=== PATIENT | male | born 1970 | race Caucasian/White ===

== ENCOUNTER 2020-03-04 08:27 | Emergency (ER) | payer OTHER, SELFPAY ==
--- NOTE | ~2020-03-04 | CT_ITS ---
EXAMINATION: CT abdomen pelvis w con DATE: 03/04/2020 09:22 INDICATION: Right lower quadrant abdominal pain. TECHNIQUE: Computed tomography (CT) of the abdomen and pelvis was performed with 100 mL Omnipaque 350 intravenous contrast. Automated exposure control and iterative reconstruction technique were employe d. The dose-length product was 1635.22 mGy-cm. COMPARISON: None. FINDINGS: Partially visualized is a 7 mm nodule in right lung lower lobe. Partially visualized are 8 mm and 4 mm nodules at minor fissure. No pleural effusion. The heart size is normal. There are garrison ry artery calcifications. No pericardial effusion. There is an 8 mm cyst in the liver. The gallbladde r, spleen, pancreas, and adrenal glands are normal. There is mild right hydronephrosis. There is a 4 mm stone in proximal right ureter. There is a 3 mm stone in left kidney. There are cysts in left kidn ey measuring up to 12 mm. The prostate is mildly enlarged. There are changes of right inguinal hernia repair. There is diverticulosis of the colon without evidence of diverticulitis. There are no dilate d loops of bowel. The appendix is normal. There are no pathologically enlarged lymph nodes. There is no free intraperitoneal fluid. There are chronic bilateral L5 pars defects. There is 8 mm anterolisth esis of L5 on S1. There is moderate lower lumbar spondylosis. IMPRESSION: 1. 4 mm stone in proximal right ureter with mild right hydronephrosis. 2. 3 mm nonobstructing left kidney stone. 3. Pulmonary nodules, probably benign. Noncontrast low-dose chest CT is recommended in 6 months. Reviewed, dictated and finalized at location B. IMPRESSION: 1. 4 mm stone in proximal right ureter with mild right hydronephrosis. 2. 3 mm nonobstructing left kidney stone. 3. Pulmonary nodules, probably benign. Noncontrast low-dose chest CT is recomme nded in 6 months.
[2020-03-04 08:35] VITALS: BP 204/103; PULSE 104; RESP 18; TEMP 36.1; O2SAT 96
[2020-03-04 08:55] LABS: Basophils Absolute Auto 0.1 K/mm3 (0.0-0.1); Basophils Percent Auto 0.7 % (0.2-1.2); Eosinophils Absolute Auto 0.2 K/mm3 (0-0.3); Hematocrit 50.5 % (42.0-52.0); Hemoglobin 17.6 g/dL (14.0-18.0); Immature Granulocyte Absolute 0.02 K/mm3 (0.00-0.031); Immature Granulocyte Percent A 0.2 % (0-0.5); Lymphocytes Absolute Auto 2.11 K/mm3 (0.9-3.2); Lymphocytes Percent Auto 23.9 % (18.3-44.2); Mean Corpuscular HGB Conc 34.9 g/dl (32-36); Mean Corpuscular Hemoglobin 29.9 pg (26-34); Mean Corpuscular Volume 85.9 fl (80-100); Mean Platelet Volume 9.3 fl (7.4-10.4); Monocytes Absolute Auto 0.7 K/mm3 (0.1-0.6); Neutrophils Absolute Auto 5.8 K/mm3 (1.3-6.7); Neutrophils Percent Auto 65.2 % (45.5-73.1); Platelet Count Result 275 k/mm3 (150-375); Red Blood Count 5.88 M/mm3 (4.6-6.20); Red Cell Distribution Width 14.1 % (11.5-14.5); White Blood Count 8.8 K/mm3 (4.5-10.0)
[2020-03-04] MEDS: SODIUM CHLORIDE 0.9% IV 1,000 ML 999 ML IV CONT (08:57)
[2020-03-04 08:58] LABS: Add Urine Microscopic? YES; Appearance Urine Clear (Clear); Bilirubin Urine Negative (Negative); Blood Urine 2+ (Negative); Color Urine Yellow (Yellow); Glucose Urine UA Negative (Negative); Ketones Urine Negative (Negative); Leukocyte Esterase Ur Negative LEU/UL (Negative); Mucus Urine Rare /lpf; Nitrate Urine Negative (Negative); Protein Urine Negative (Negative); Specific Grav Ur 1.018 (1.001-1.035); Urobilinogen Urine Negative mg/dL (<2.0); WBC Urine 0-3 /hpf
[2020-03-04 09:05] LABS: Anion Gap 6 mmol/L (8-16); Blood Urea Nitrogen 17 mg/dL (9-20); Calcium 8.9 mg/dL (8.4-10.2); Carbon Dioxide 28 mmol/L (22-30); Chloride 105 mmol/L (98-107); Estimated CRCL calculation 125 ml/min; Estimated Glomerular Filt Rate > 60; Glucose 159 mg/dL (75-110); Potassium 4.1 mmol/L (3.4-5.0); Sodium 139 mmol/L (137-145)
--- NOTE | 2020-03-04 09:11 | ED.ABDPAIN ---
HPI - Abdominal Pain General Chief Complaint: Abdominal Pain Stated Complaint: rlq abd pain Time Seen by Provider: 03/04/20 08:46 Source: patient and family Mode of arrival: ambulatory Limitations: no limitations History of Present Illness HPI narrative: 50 years old white female, morbidly obese presents with right upper quadrant pain intermittently started last night. Patient denies any nausea, vomiting, fever, chills or, similar symptoms. Patient report the pain probably get better or worse with certain positions. No history of abdominal surgery. Patient does not take medications at home. Patient smokes, does not drink or use drugs. MD elicited complaint: abdominal pain Related Data Home Medications Medication Instructions Recorded Confirmed No Home Medications 03/04/20 03/04/20 Allergies Allergy/AdvReac Type Severity Reaction Status Date / Time No Known Allergies Allergy Verified 03/04/20 08:41 Review of Systems Review of Systems: Narrative: CONSTITUTIONAL: Denies fever, chills, or sweats. EYES: Denies visual changes, redness, or discharge. ENT: Denies rhinorrhea, congestion, sore throat, or otalgia. CARDIOVASCULAR: Denies chest pain, palpitations, or edema. RESPIRATORY: Denies cough or dyspnea. GASTROINTESTINAL: Right upper quadrant pain GENITOURINARY: Denies dysuria or hematuria. SKIN: Denies rash or itching. MUSCULOSKELETAL: Denies back pain, joint pain, or myalgia. NEUROLOGIC: Denies headache, numbness, or weakness. PSYCHIATRIC: Denies anxiety or depression. PMFSH Social History Social History Gender identity (if verbalized by the patient): Male Exam Narrative: Exam Narrative: General appearance: Well-developed, well-nourished Skin: Normal color Head: Normocephalic, nontraumatic Eyes: Clear conjunctiva ENT: Oropharynx normal, ears normal, nose normal Neck: Supple, nontender Chest and respiratory: Airway patent, no respiratory distress, no accessory muscle use Heart: Regular rate/rhythm Abdomen: Soft, slight upper quadrant tenderness no guarding or rebound, no organomegaly, quiet bowel sounds Vascular: Normal peripheral pulses, normal capillary refill. Musculoskeletal: Normal range of motion, nontender back Neurologic: Alert and oriented ?3, IC DESIGN ENGINEER is normal as tested, no gross motor deficit Course Course Emergency Course: Stable Reevaluation(s) Reevaluation #1: Patient feeling much better, willing to go home, declined to stay in the hospital for pain management. Date: 03/04/20 Time: 10:18 Vital Signs Vital signs: Vital Signs Temperature 36.1 C L 03/04/20 08:35 Pulse Rate 104 H 03/04/20 08:35 Respiratory Rate 18 03/04/20 08:35 Blood Pressure 204/103 H 03/04/20 08:35 Pulse Oximetry 96 03/04/20 08:35 Temperature 36.1 C L 03/04/20 08:35 Pulse Rate 104 H 03/04/20 08:35 Respiratory Rate 18 03/04/20 08:35 Blood Pressure 204/103 H 03/04/20 08:35 Pulse Oximetry 96 03/04/20 08:35 MDM - Abdominal Pain MDM Narrative Medical decision making narrative: Right upper quadrant pain Differential diagnosis as below Labs, CT abdomen and pelvis with IV contrast, IV fluid ordered. Further plan to follow. Patient declined to take any pain medication at this time. Lab Data Result diagrams: 03/04/20 08:47 03/04/20 08:47 Labs: Lab Results 03/04/20 03/04/20 03/04/20 Range/Units 08:47 08:47 08:47 WBC 8.8 (4.5-10.0) K/mm3 RBC 5.88 (4.6-6.20) M/mm3 Hgb 17.6 (14.0-18.0) g/dL Hct 50.5 (42.0-52.0) % MCV 85.9 (80-100) fl MCH 29.9 (26-34) pg MCHC 34.9 (32-36) g/dl RDW 14.1 (11.5-14
[2020-03-04] MEDS: ONDANSETRON INJ 4 MG/2 ML VIAL (09:30)
--- NOTE | 2020-03-04 09:30 | PC.NURSE ---
Per [facility] EDP Dr Mayi valenzuela to give pt Zofran 4MG for nausea and 1MG Dilaudid for pain rated 9/10 currently.
[2020-03-04] MEDS: TAMSULOSIN HCL 0.4 MG CAPSULE PO (10:32)
[2020-03-04] MEDS: KETOROLAC 30 MG/ML VIAL (*BKC) IV PUSH (10:34)
[2020-03-04 10:39] VITALS: BP 180/114; PULSE 67; RESP 18; O2SAT 95
== END 2020-03-04 10:44 | disposition home or self-care (01) ==
PROVIDERS: Emergency Provider Emergency Medicine; PCP Family Medicine Adolescent Medicine
DX: N20.0 Calculus of kidney (principal); R91.1 Solitary pulmonary nodule
CPT/HCPCS: 36415; 74177; 80048; 81001; 85025; 96361; 96374; 96375; 99284; A9270; J1170; J1885; J2405; J7030; Q9967

== ENCOUNTER → 2022-08-18 09:33 | Outpatient (CLI) | payer OTHER, SELFPAY ==
--- NOTE | ~2022-08-18 | US_ITS ---
Abdominal Sonogram: Real-time sonographic imaging of the abdomen was performed. Clinical History: Epigastric pain Findings: The liver appears normal with no evidence of mass lesion or bile duct dilatation. Main por cyndi vein demonstrates normal direction of flow. The spleen is normal in size without evidence of foca l lesion. The gallbladder is well distended, and appears normal with no evidence of gallstone or wal l thickening. The common bile duct measures 4 mm. The pancreas, aorta, and IVC are largely obscured by bowel gas shadowing. The right kidney measures 12.8 cm in length and the left kidney measures 12. 6 cm. There is no hydronephrosis or renal calculus. Impression: No significant abnormality seen. Somewhat suboptimal exam due to patient body habitus and bowel gas s hadowing. Relatively poor resolution of the retroperitoneal structures and kidneys. Reviewed, dictated and finalized at [facility]. TY AND SECURITY MANAGER Impression: No significant abnormality seen. Somewhat suboptimal exam due to patient body h abitus and bowel gas shadowing. Relatively poor resolution of the retroperitone al structures and kidneys.
== END ==
PROVIDERS: PCP Family Medicine Adolescent Medicine; Visit Provider Physician Assistant
DX: R10.13 Epigastric pain (principal)
CPT/HCPCS: 76700

== ENCOUNTER 2022-08-24 09:31 | Outpatient (CLI) | payer OTHER, SELFPAY ==
--- NOTE | ~2022-08-24 | XR_ITS ---
XR chest 2V DATE: 08/24/2022 09:57 INDICATION: Shortness of breath. Abdominal swelling. TECHNIQUE: PA and lateral views COMPARISON: None FINDINGS: There is cardiomegaly. Minimal pleural effusions are suggested. Mild prominence of the kacey r and greater fissures may indicate subpleural edema. No pulmonary consolidation or pneumothorax. IMPRESSION: Cardiomegaly and mild congestive change, probable minimal pleural effusions Reviewed, dictated and finalized at location A. TION SURVIVAL TECHNICIAN IMPRESSION: Cardiomegaly and mild congestive change, probable minimal pleural e ffusions
--- NOTE | ~2022-08-24 | XR_ITS ---
EXAMINATION: XR abdomen/kub 1V INDICATION: Abdominal swelling TECHNIQUE: Supine views of the abdomen were obtained on 2 radiographs. COMPARISON: None FINDINGS: The bowel gas pattern is unremarkable. No free intraperitoneal gas is identified. The visua lized lung bases are clear. There are changes of hernia repair in the right lower quadrant. IMPRESSION: 1. No radiographic correlate for the patient's symptoms. Reviewed, dictated and finalized at location L. NCIAL SERVICES EDUCATION CONSULTANT
[2022-08-24 10:02] LABS: Basophils Absolute Auto 0.1 K/mm3 (0.0-0.1); Basophils Percent Auto 0.8 % (0.2-1.2); Eosinophils Absolute Auto 0.1 K/mm3 (0-0.3); Hematocrit 48.9 % (42.0-52.0); Hemoglobin 16.2 g/dL (14.0-18.0); Immature Granulocyte Absolute 0.01 K/mm3 (0.00-0.031); Immature Granulocyte Percent A 0.1 % (0-0.5); Lymphocytes Absolute Auto 1.45 K/mm3 (0.9-3.2); Lymphocytes Percent Auto 18.9 % (18.3-44.2); Mean Corpuscular HGB Conc 33.1 g/dl (32-36); Mean Corpuscular Hemoglobin 28.6 pg (26-34); Mean Corpuscular Volume 86.2 fl (80-100); Monocytes Absolute Auto 1.1 K/mm3 (0.1-0.6); Monocytes Percent Auto 14.5 % (2.6-8.5); Neutrophils Percent Auto 64.7 % (45.5-73.1); Platelet Count Result 203 k/mm3 (150-375); Red Blood Count 5.67 M/mm3 (4.6-6.20); Red Cell Distribution Width 15.2 % (11.5-14.5); White Blood Count 7.7 K/mm3 (4.5-10.0)
[2022-08-24 10:14] LABS: Alanine Aminotransferase 33 U/L (6-50); Alkaline Phosphatase 49 U/L (38-126); Aspartate Amino Transferase 34 U/L (17-59); Bilirubin,Total 2.7 mg/dL (0.2-1.3); CRP 0.9 mg/dL (<1.0)
[2022-08-24 10:21] LABS: NT Pro B Type Natriuretic Pept 4000 pg/mL (19.9-100)
[2022-08-24 10:48] LABS: Erythrocyte Sedimentation Rate 1 mm/hr (0-20)
== END 2022-08-24 09:32 | disposition home or self-care (01) ==
LOC: ANHLAB 09:33
PROVIDERS: PCP Family Medicine Adolescent Medicine; Visit Provider Nurse Practitioner
DX: E66.01 Morbid (severe) obesity due to excess calories (principal); E80.6 Other disorders of bilirubin metabolism; R06.02 Shortness of breath; R10.13 Epigastric pain; R14.0 Abdominal distension (gaseous); R60.9 Edema, unspecified; Z68.42 Body mass index [BMI] 45.0-49.9, adult; I51.7 Cardiomegaly
CPT/HCPCS: 36415; 71046; 74018; 80076; 83880; 85025; 85652; 86140

== ENCOUNTER 2022-08-24 11:50 | Inpatient (IN) | payer OTHER, SELFPAY ==
[2022-08-24] VITALS (14 sets, daily range): BP systolic 130–183; BP diastolic 92–134; PULSE 93–129; RESP 9–42; TEMP 36.4; O2SAT 92–100
--- NOTE | ~2022-08-24 | CT_ITS ---
EXAMINATION: CTA chest PE abdomen pel DATE: 08/24/2022 18:51 INDICATION: epigastric pressure/SOB/+dimer/elev BNP TECHNIQUE: Computed tomography angiography (CTA) of the chest was performed with 100 mL Omnipaque-350 intravenous contrast timed to evaluate the pulmonary arteries, followed by portal venous phase imagi ng of the abdomen and pelvis. Coronal maximum intensity projection 3D-reconstructions were created by the technologist. The dose-length product (DLP) was 2309.31 mGy-cm. Automated exposure control and i terative reconstruction technique were employed. COMPARISON: CT abdomen and pelvis 03/04/2020, ultrasound abdomen 08/18/2022. FINDINGS: CHEST: Lung parenchyma and airways: Dependent groundglass opacities. Mild septal thickening. Stable right pu lmonary nodules, likely benign. Pleura: Moderate right and small left pleural fluid collections. Thoracic inlet, axillae and chest wall: Asymmetric subareolar soft tissue density in the left breast. Thoracic aorta: Mild arch calcification, no significant dilation. Mediastinum: Normal. Heart and pericardium: Cardiomegaly. Small volume pericardial fluid collection Coronary artery calcifications: Moderate. Thoracic bones: No acute osseous finding. Pulmonary arteries: Study quality: Motion artifact, particularly in the left lower lobe, overall diag nostic. No pulmonary emboli detected. ABDOMEN/PELVIS: Significant motion artifact, particularly in the upper abdomen. Liver: Normal. Biliary/Gallbladder: Gallbladder is normal. No bile duct dilation. Pancreas: No mass or duct dilation. Spleen: Normal. Adrenals:No mass. Kidneys: Indeterminate density left inferior pole lesion, adjacent to an area of scar, larger than in the prior study. Nonobstructing punctate left calcification. Left midpole hypodensity, too small to characterize GI tract: No small or large bowel dilation. Normal appendix. Mesentery/Peritoneum: Small volume ascites. Mesenteric edema. Retroperitoneum: No mass. Atherosclerotic abdominal aortic and/or arterial calcifications. Pelvis: Pelvic organs are within normal limits. Soft Tissues: Moderate diffuse body wall edema, with pronounced stranding in the lower anterior abdom inal wall. Abdominopelvic bones: No acute osseous finding. IMPRESSION: Motion limited examination. 1. No CT evidence of acute pulmonary embolus, noting there is somewhat limited visualization of the m ost distal, subsegmental left lower lobe arteries. 2. Cardiomegaly. 3. Small pericardial effusion. 4. Pulmonary edema. 5. Moderate right and small left pleural effusions. 6. Left breast mass, recommend nonemergent, outpatient mammography and breast ultrasound. 7. Indeterminate left inferior pole lesion, recommend nonemergent, outpatient CT or MR without and wi th contrast for further evaluation. 8. Body wall edema, correlate for findings of panniculitis in the anterior abdomen. Reviewed, dictated and finalized at location K. ING PARALEGAL IMPRESSION: Motion limited examination. 1. No CT evidence of acute pulmonary embolus, noting there is somewhat limited visualization of the most distal, subsegmental left lower lobe arteries. 2. Cardiomegaly. 3. Small pericardial effusion. 4. Pulmonary edema. 5. Moderate right and small left pleural effusions. 6. Left breast mass, recommend nonemergent, outpatient mammography and breast u ltrasound. 7. Indeterminate left inferior pole lesion, recommend nonemergent, outpatient C T or MR without and with contrast for further evaluation. 8. Body wall edema, correlate for findings of panniculitis in the anterior abdo men.
--- NOTE | 2022-08-24 12:29 | ECG_ITS ---
Measurements Intervals [place] Rate: 122 P: 51 CA: 157 QRS: -40 QRSD: 101 T: 97 QT: 323 QTc: 461 Interpretive Statements SINUS TACHYCARDIA MARKED LEFT AXIS DEVIATION [QRS AXIS < -30] NONSPECIFIC T-WAVE ABNORMALITY NO PREVIOUS ECG AVAILABLE FOR COMPARISON Electronically Signed On 08-24-2022 16:25:17 GUM PULLER by Dara Lambert M.D.
--- NOTE | 2022-08-24 16:57 | PC.NURSE ---
pt asked to try and give urine sample while in waiting room
[2022-08-24 17:30] LABS: Appearance Urine Clear (Clear); Bilirubin Urine 1+ (Negative); Blood Urine Trace-intact (Negative); Color Urine Yellow (Yellow); Glucose Urine UA Negative (Negative); Ketones Urine Negative (Negative); Leukocyte Esterase Ur Negative LEU/UL (Negative); Nitrate Urine Negative (Negative); Protein Urine 3+ mg/dL (Negative); Specific Grav Ur 1.025 (1.001-1.035); pH Urine 6.5 (5.0-9.0)
[2022-08-24 17:34] LABS: Mucus Urine Few /lpf; WBC Urine 0-3 /hpf
[2022-08-24 17:36] LABS: Add Urine Microscopic? YES
--- NOTE | 2022-08-24 17:44 | ED.SOB ---
HPI - SOB/Dyspnea General Chief Complaint: Shortness of Breath/Dyspnea Stated Complaint: upper abd pain Time Seen by Provider: 08/24/22 17:11 Source: patient and old records reviewed Mode of arrival: ambulatory Limitations: no limitations History of Present Illness HPI Narrative: Patient is a 52-year-old male who presents to the ED with report of upper abdominal/epigastric pressure and difficulty breathing. Patient reports having issues with pressure in his upper abdomen/epigastric region/lower chest since last fall. He states he feels like something is pushing up into his diaphragm and he is unable to take a deep breath, which causes difficulty breathing/shortness of breath. Symptoms are worse with laying flat and with exertion. He was referred to GI and saw them this morning. There were basic labs performed, abdomen x-ray which was unremarkable, chest x-ray which showed cardiomegaly and vascular congestion. BNP was checked and noted to be elevated. Patient was then advised to return to the ED for further evaluation. Patient denies history of CHF. He has had intermittent swelling into his lower extremities. He denies having chest pain or abdominal pain, just reporting pressure. Denies recent fever, cough, cold symptoms, nausea, vomiting, diarrhea, constipation. Related Data Allergies Allergy/AdvReac Type Severity Reaction Status Date / Time No Known Allergies Allergy Verified 08/24/22 08:56 Review of Systems Review of Systems: CONSTITUTIONAL: Denies fever, chills, or sweats. ENT: Denies rhinorrhea, congestion, sore throat. CARDIOVASCULAR: See HPI. RESPIRATORY: See HPI. GASTROINTESTINAL: See HPI. GENITOURINARY: Denies dysuria or hematuria. SKIN: Denies rash or itching. All systems reviewed & are unremarkable except as noted in HPI and below PMFSH Past Medical History Medical History Abdominal distension Bloating Cardiomegaly Early satiety Elevated brain natriuretic peptide (BNP) level Epigastric pressure Peripheral edema SOB (shortness of breath) Surgical History Surgical History No pertinent past surgical history Social History Social History Smoking status: Smoker, status unknown Gender identity (if verbalized by the patient): Male Exam Narrative: GENERAL: Well appearing, morbidly obese, non-toxic, in no acute distress. HEAD: Normocephalic, atraumatic. NECK: Supple. No adenopathy, no masses. RESPIRATORY: Airway patent, respirations nonlabored. Clear to auscultation bilaterally, no rales, rhonchi, wheezing. No significant focal lung sounds. CARDIOVASCULAR: Heart sounds distant. Regular rate and rhythm without murmurs, rubs, or gallops. Peripheral pulses 2+ and equal bilaterally. ABDOMINAL: Soft, nontender, nondistended, no hepatosplenomegaly. Normoactive BS. MUSCULOSKELETAL: Moves all extremities. Strength/ROM intact without gross deformities. 1+ pitting edema to lower extremities bilaterally. SKIN: Warm, dry, normal color. No rashes. NEURO: A&O X3. Speech clear. Cranial nerves II-XII grossly intact. No ataxic movements. PSYCHIATRIC: Mildly anxious. Normal interaction. Course Vital Signs Vital signs: Vital Signs Temperature 97.6 F 08/24/22 12:24 Pulse Rate 129 H 08/24/22 12:24 Respiratory Rate 24 H 08/24/22 12:24 Blood Pressure 167/119 H 08/24/22 12:24 Pulse Oximetry 94 08/24/22 12:24 Oxygen Delivery Room Air 08/24/22 12:24 Temperature 97.6 F 08/24/22 12:24 Pulse Rate 96 08/24/22 20:36 Respiratory Rate 16 08/24/22 20:15 Blood Pressure 139/92 H 08/24/22 20:15 Pulse Oximetry 100 08/24/22 20:15 Oxygen Delivery Room Air 08/24/22 12:24 MDM - SOB/Dyspnea MDM Narrative Medical decision making narrative: Patient presented to ED with several month history of epigastric pressur
[2022-08-24 18:20] LABS: Alanine Aminotransferase 29 U/L (6-50); Albumin Level 3.6 g/dL (3.5-5.1); Alkaline Phosphatase 45 U/L (38-126); Anion Gap 3 mmol/L (8-16); Aspartate Amino Transferase 29 U/L (17-59); Bilirubin,Total 2.8 mg/dL (0.2-1.3); Blood Urea Nitrogen 10 mg/dL (9-20); Calcium 8.1 mg/dL (8.4-10.2); Carbon Dioxide 28 mmol/L (22-30); Chloride 103 mmol/L (98-107); Estimated CRCL calculation 102 ml/min; Estimated Glomerular Filt Rate > 60; Glucose 102 mg/dL (65-110); Potassium 3.7 mmol/L (3.4-5.0); Sodium 134 mmol/L (137-145)
[2022-08-24 18:21] LABS: INR 1.3; Prothrombin Time 15.3 Seconds (11.1-14.7)
[2022-08-24 18:22] LABS: Partial Thromboplastin Time 29.3 SECONDS (22.3-36.8)
[2022-08-24 18:25] LABS: D Dimer 0.94 ug/mL (<0.48)
[2022-08-24 18:31] LABS: Troponin I 0.034 ng/mL (0.000-0.034)
[2022-08-24 18:43] LABS: Influenza A QL RT-PCR Negative (Negative); Influenza B QL RT-PCR Negative (Negative); SARS-CoV-2 RNA PCR Negative
[2022-08-24] MEDS: FUROSEMIDE INJ 40 MG/4 ML VIAL IV PUSH (19:54)
[2022-08-24] MEDS: LABETALOL HCL INJ 100 MG/20 ML VIAL 20 MG IV PUSH (19:55)
--- NOTE | 2022-08-24 20:38 | PM.IMHP ---
H&P: HPI History of Present Illness Date/Time: 08/24/22 20:38 Chief Complaint: 52 years old male presented to the hospital with 2 to abnormal labs with elevated BNP patient was complaining of bloating and epigastric discomfort associated with abdominal distension and shortness of breath with activity with lower extremity swelling was evaluated by GI on lab review patient was found to have elevated BNP chest x-ray showed cardiomegaly and congestion patient was referred to the ER at the ER blood pressure systolic was in 180s heart rate was in 130s CT scan of the chest shows breast mass pulmonary edema patient was found to have hypertensive urgency associated with acute CHF exacerbation started on IV diuresis admitted to the hospital for further evaluation and treatment cardiology was consulted Review of Systems Review of Systems: Twelve system review was done was negative except above PMFSH Past Medical History Medical History Abdominal distension Bloating Cardiomegaly Early satiety Elevated brain natriuretic peptide (BNP) level Epigastric pressure Peripheral edema SOB (shortness of breath) Surgical History Surgical History No pertinent past surgical history Social History Social History Smoking status: Smoker, status unknown Gender identity (if verbalized by the patient): Male Meds Home Medications and Allergies Home Medications Medication Instructions Recorded Confirmed Type pantoprazole 40 mg tablet,delayed 40 mg PO BID #60 tabs 07/28/22 08/24/22 Rx release metoclopramide HCl 10 mg tablet 10 mg PO TID PRN nausea and 08/18/22 08/24/22 Rx vomiting #45 tabs Allergies Allergy/AdvReac Type Severity Reaction Status Date / Time No Known Allergies Allergy Verified 08/24/22 08:56 Vital Signs Vital Signs - 24 hr 08/24/22 12:24 08/24/22 16:56 08/24/22 17:15 Temperature 97.6 F Pulse Rate 129 H 120 H 124 H Respiratory Rate 24 H 18 30 H Blood Pressure 167/119 H 175/133 H Pulse Oximetry 94 94 Oxygen Delivery Room Air 08/24/22 17:17 08/24/22 17:30 08/24/22 17:45 Temperature Pulse Rate 122 H 123 H 111 H Respiratory Rate 31 H 24 H Blood Pressure 183/127 H Pulse Oximetry 94 97 94 Oxygen Delivery 08/24/22 17:46 08/24/22 18:02 08/24/22 18:19 Temperature Pulse Rate 113 H 112 H 112 H Respiratory Rate 9 L 25 H 42 H Blood Pressure 168/130 H Pulse Oximetry 95 96 92 Oxygen Delivery 08/24/22 19:45 08/24/22 20:15 08/24/22 20:36 Temperature Pulse Rate 115 H 98 96 Respiratory Rate 26 H 16 Blood Pressure 183/134 H 139/92 H Pulse Oximetry 96 100 Oxygen Delivery Exam Narrative: GENERAL: Short of breath HEAD: Normocephalic, atraumatic. NECK: Supple. No adenopathy, no masses. RESPIRATORY: Bilateral crackles. CARDIOVASCULAR: Regular rate and rhythm without murmurs, rubs, or gallops. Peripheral pulses 2+ and equal bilaterally. ABDOMINAL: Soft, nontender, nondistended, no hepatosplenomegaly. Normoactive BS. MUSCULOSKELETAL: Moves all extremities. Strength/ROM intact without gross deformities or TTP. No edema. No calf tenderness. No chest wall tenderness palpation. SKIN: Positive lower extremity edema NEURO: A&O X3. Moves all extremities PSYCHIATRIC: Appropriate mood and affect. Normal interaction. H&P: Results Labs Labs: [facility] 08/24/22 17:55 Sodium 134 L Potassium 3.7 Chloride 103 Carbon Dioxide 28 BUN 10 D Creatinine 1.10 Glucose 102 Calcium 8.1 L Cardiac Enzymes 08/24/22 Range/Units 17:55 Troponin I 0.034 (0.000-0.034) ng/mL Liver Function 08/24/22 Range/Units 17:55 Total Bilirubin 2.8 H (0.2-1.3) mg/dL AST 29 (17-59) U/L ALT 29 (6-50) U/L Alkaline Phosphatase 45 (38-126) U/L Albumin 3.6 (3.5-5.1) g/dL Ur
[2022-08-24 21:19] LABS: Troponin I 0.041 ng/mL (0.000-0.034)
[2022-08-24] MEDS: lisinopriL 10 MG TABLET PO (22:11)
[2022-08-24] MEDS: FAMOTIDINE 20 MG TABLET PO (22:12)
[2022-08-24] MEDS: carvediloL 12.5 MG TABLET PO (22:12)
--- NOTE | 2022-08-24 23:44 | PC.NURSE ---
Oxygen saturation on room air dropped to 80%. Pt was sleeping. Denies known history of sleep apnea. Denies feeling SOB or having chest pain. 2L nasal cannula applied. Oxygen saturation increased to 97%.
[2022-08-25] VITALS (16 sets, daily range): BP systolic 113–141; BP diastolic 78–104; PULSE 67–99; RESP 16–26; TEMP 36.4–37.2; O2SAT 95–99; BMI 44.6
--- NOTE | 2022-08-25 | ECHO_ITS ---
Patient Info Name: Hieu Obrien Age: 52 years : 1970 Gender: Male Ht: 70 in Wt: 322 lbs BSA: 2.76 m2 HR: 97 bpm BP: 141 / 104 mmHg Heart Rhythm: Sinus Rhythm Technical Quality: Fair Exam Date: 08/25/2022 10:35 AM Exam Location: [facility] Pulmonary Patient Status: Inpatient Admit Date: 08/24/2022 Staff Ordering Physician: Heather Rey PA-C Rn Home Health: [facility] RDCS Attending Provider: Sabas Swan M.A., MD Referring Physician: Candido VENEGAS; Exam Type: CA echo dop color flow w con Study Info Indications - New onset chf Complete two-dimensional, color flow and Doppler transthoracic echocardiogram is performed with contrast to opacify the left ventricle and to improve the deliniation of the left ventricle endocardial borders. Contrast/Agitated Saline Contrast/Ag. Saline: Definity Amount: 3.00 ml Administered By: Park Herndon RDCS Existing IV Access: Yes IV Access Condition: patent with no signs of infiltration Summary 1. Left ventricular chamber dimension is severely enlarged. 2. Left ventricular systolic function is severely reduced, estimated at 25-30%. 3. There is mildly increased left ventricular wall thickness. 4. Right ventricular chamber dimension is moderately enlarged. 5. Right ventricular systolic function is reduced. 6. Left atrial chamber dimension is moderately enlarged. 7. Right atrial chamber dimension is mildly enlarged. 8. There is mild to moderate mitral valve regurgitation. 9. There is mild tricuspid valve regurgitation. 10. Dilated inferior vena cava with <50% collapse upon inspiration consistent with elevated right atrial pressure, 15 mmHg. 11. There is small pericardial effusion. No echocardiographic evidence of tamponade. Left Ventricle Left ventricular chamber dimension is severely enlarged. Left ventricular systolic function is severely reduced, estimated at 25-30%. There is mildly increased left ventricular wall thickness. Right Ventricle Right ventricular chamber dimension is moderately enlarged. Right ventricular systolic function is reduced. Left Atria Left atrial chamber dimension is moderately enlarged. Right Atria Right atrial chamber dimension is mildly enlarged. Atrial Septum Intact interatrial septum visualized by color flow imaging. Aortic Valve The aortic valve is probable trileaflet. There is no aortic valve stenosis. There is no aortic valve regurgitation. There is mild aortic valve calcification. Pulmonic Valve The pulmonic valve is not well visualized. Mitral Valve The mitral valve has calcified leaflets. There is no mitral valve stenosis. There is mild to moderate mitral valve regurgitation. The mitral valve annulus is mildly calcified. Tricuspid Valve There is mild tricuspid valve regurgitation. Pericardium/Pleural There is small pericardial effusion. No echocardiographic evidence of tamponade. Inferior Vena Cava Dilated inferior vena cava with <50% collapse upon inspiration consistent with elevated right atrial pressure, 15 mmHg. Aorta The aortic root size at the sinus of Valsalva is normal. Left Ventricular Outflow Tract Name Value Normal LVOT 2D
[2022-08-25 05:33] LABS: Basophils Absolute Auto 0.1 K/mm3 (0.0-0.1); Basophils Percent Auto 0.8 % (0.2-1.2); Eosinophils Absolute Auto 0.1 K/mm3 (0-0.3); Eosinophils Percent Auto 1.3 % (0-4.4); Hematocrit 45.6 % (42.0-52.0); Immature Granulocyte Absolute 0.02 K/mm3 (0.00-0.031); Immature Granulocyte Percent A 0.3 % (0-0.5); Lymphocytes Absolute Auto 1.43 K/mm3 (0.9-3.2); Lymphocytes Percent Auto 23.4 % (18.3-44.2); Mean Corpuscular HGB Conc 32.9 g/dl (32-36); Mean Corpuscular Hemoglobin 29.1 pg (26-34); Mean Corpuscular Volume 88.4 fl (80-100); Mean Platelet Volume 10.1 fl (7.4-10.4); Monocytes Absolute Auto 0.9 K/mm3 (0.1-0.6); Monocytes Percent Auto 15.1 % (2.6-8.5); Neutrophils Absolute Auto 3.6 K/mm3 (1.3-6.7); Neutrophils Percent Auto 59.1 % (45.5-73.1); Platelet Count Result 177 k/mm3 (150-375); Red Blood Count 5.16 M/mm3 (4.6-6.20); Red Cell Distribution Width 15.3 % (11.5-14.5); White Blood Count 6.1 K/mm3 (4.5-10.0)
[2022-08-25 05:46] LABS: Alanine Aminotransferase 29 U/L (6-50); Albumin Level 3.6 g/dL (3.5-5.1); Alkaline Phosphatase 38 U/L (38-126); Anion Gap 4 mmol/L (8-16); Aspartate Amino Transferase 33 U/L (17-59); Blood Urea Nitrogen 10 mg/dL (9-20); Calcium 7.9 mg/dL (8.4-10.2); Carbon Dioxide 27 mmol/L (22-30); Chloride 102 mmol/L (98-107); Estimated CRCL calculation 112 ml/min; Estimated Glomerular Filt Rate > 60; Glucose 97 mg/dL (65-110); Potassium 3.5 mmol/L (3.4-5.0); Sodium 133 mmol/L (137-145)
--- NOTE | 2022-08-25 06:14 | ADMGEN ---
This patient, Hieu Obrien, was admitted to IMU Room 213-01 at 0615 am. Patient/family oriented to hospital policies and general routines including ID bracelet, bed and alarms, visiting hours, pain management, procedures, bathroom and other care routines, personal items, smoking policy, room service/diet, and visiting hours. Information on how to activate the Rapid Response Team has been discussed. Patient/Family are encouraged to report perceived risks to care and to ask questions if they do not understand what they are told or what they should do.
[2022-08-25] MEDS: PERFLUTREN LIPID MICROSPHERES 1.5 ML VIAL DILUTED TO 10 ML TOTAL VOLUME IV PUSH (11:20)
[2022-08-25] MEDS: FAMOTIDINE 20 MG TABLET PO ×2 (11:20→22:29)
[2022-08-25] MEDS: lisinopriL 10 MG TABLET PO (11:21)
[2022-08-25] MEDS: ASPIRIN 81 MG ENTERIC TABLET PO (11:21)
[2022-08-25] MEDS: carvediloL 12.5 MG TABLET PO ×2 (11:21→22:29)
[2022-08-25] MEDS: FUROSEMIDE INJ 40 MG/4 ML VIAL 60 MG IV PUSH ×2 (11:22→17:43)
[2022-08-25] MEDS: HEPARIN SODIUM 5,000 UNITS/ML VIAL 5000 UNITS SUB-Q ×2 (11:23→22:28)
--- NOTE | 2022-08-25 12:05 | IVDEFINITY ---
Prior to administration of IV Definity the patient was educated on the risks and benefits of the imaging enhancing agent including potential adverse side effects. The patient verbalized understanding. Allergies were verified. No exclusion criteria were identified and at least one of the following inclusion criteria were met: 1) physician request, 2) patient technically difficult to image (per the [place] [employer]chocardi[employer] guidelines of two or more segments not discernable within the apical view), or 3) questionable left ventricular function. ?
--- NOTE | 2022-08-25 13:04 | PM.CNCAR ---
Assessment and Plan Assessment and plan (1) Acute congestive heart failure: Qualifiers: Heart failure type: unspecified Qualified Code(s): I50.9 - Heart failure, unspecified Code(s): I50.9 - Heart failure, unspecified Status: Acute (2) Dyspnea on exertion: Code(s): R06.09 - Other forms of dyspnea Status: Acute (3) Breast mass: Code(s): N63.0 - Unspecified lump in unspecified breast Status: Acute (4) Sinus tachycardia: Code(s): R00.0 - Tachycardia, unspecified Status: Acute (5) Morbid obesity with BMI of 45.0-49.9, adult: Code(s): E66.01 - Morbid (severe) obesity due to excess calories; Z68.42 - Body mass index [BMI] 45.0-49.9, adult Status: Acute Plan Echocardiogram shows LVEF 25-30%, severely enlarged LV, moderately enlarged RV with reduced RVSF, mild-moderate MR, mild TR, elevated RAP, small pericardial effusion. This is a new diagnosis of HFrEF for the patient. Agree with intermittent IV diuresis. Please monitor strict I/Os, and daily standing weights. Stop Lisinopril. Will start Entresto after adequate washout period from ACEi (Entresto to start Tuesday 2 AM). Continue with Coreg. Start Aldactone. Start Jardiance. Patient will need eventual ischemic evaluation, in the form of cardiac cath. Not appropriate for cath at this time as patient cannot adequately lay flat without orthopnea. Recommend cardiac cath once patient is euvolemic. If patient happens to be ready for discharge over the weekend, then cardiac cath can be obtained as an outpatient. History of Present Illness History of Present Illness Consult date/time: 08/25/22 13:04 Requesting physician: Heather Rey PA-C Consult reason: congestive heart failure Reason For Visit: New Onset CHF,Epigastric Pressure,HTN Narrative: We are consulted for decompensated heart failure. This is a pleasant 52-year-old male with a history of morbid obesity, history of right inguinal hernia repair, history of kidney stones who presented to [facility] after being sent from GI clinic for elevated BNP. Patient has had abdominal bloating, abdominal discomfort, abdominal distension for a few months now, for which he was sent to GI clinic for further evaluation. Patient also reported shortness of breath with exertion, lower extremity swelling. These symptoms have also been going on for a few months now. Patient reports a stressful job and has had anxiety and panic attacks. Workup thus far has shown: Troponins 0.034 --> 0.041 --> 0.040 BNP of 4,000 Normal TSH level LDL 149 CTA with pulmonary edema, moderate right and small left pleural effusions, small pericardial effusion, of note he does have a small left breast mass, and body wall edema EKG showing sinus tachycardia with nonspecific STTW abnormality Review of Systems Review of Systems: 12 point ROS obtained. Negative, unless stated in HPI. [facility] Past Medical History Medical History Abdominal distension Bloating Cardiomegaly Early satiety Elevated brain natriuretic peptide (BNP) level Epigastric pressure Peripheral edema SOB (shortness of breath) Surgical History Surgical History No pertinent past surgical history Family History Family History Father Acute myocardial infarction Grandparent Colon cancer Social History Social History Smoking status: Former smoker Tobacco type: cigarettes Second hand tobacco smoke exposure: No Smoking end date: 07/11/93 Alcohol intake: current Drinks per week: 2 Substance use: never Substance use type: does not use Lack of Transportation: No Lack of Food: Never True Current Housing: I Have Housing Concerned About Future Housing: No Difficulty Paying Gas/Electric Bills: No
[2022-08-25] MEDS: EMPAGLIFLOZIN 10 MG TABLET PO (14:57)
[2022-08-25] MEDS: SPIRONOLACTONE 12.5 MG TABLET PO (14:57)
--- NOTE | 2022-08-25 16:01 | PM.IMPN ---
Progress Note: A&P Assessment and Plan (1) Epigastric pressure: Code(s): R10.13 - Epigastric pain Status: Acute Assessment and Plan: Most likely related to hypertensive urgency Serial EKG serial troponin telemonitor Continue Pepcid Started aspirin beta-effie Coreg lisinopril IV Lasix Cardiology was consulted 08/25/2022 interval history: 52-year-old male presented with shortness of breath and lower extremity edema, and and complains of orthopnea and elevated BNP of 4000, further evaluate patient had a cardiac echo showed severe cardiomyopathy with ejection fraction of 25-30% most likely patient is having acute on chronic systolic congestive Heart failure, with being diuresed, is feeling little better compared to when he arrived, patient will be seen by Cardiology and further recommendation to follow. patient had a CT of the chest did not show any pulmonary emboli there is a concern patient patient has left breast mass I spoke with the patient and his patient will need further evaluation with mammogram and ultrasound as outpatient, will continue to monitor will have PT OT evaluate the patient. (2) SOB (shortness of breath): Code(s): R06.02 - Shortness of breath Status: Acute Assessment and Plan: Acute CHF exacerbation associated with pleural effusion start IV diuresis follow echo results cardiology consult (3) Morbid obesity with BMI of 45.0-49.9, adult: Code(s): E66.01 - Morbid (severe) obesity due to excess calories; Z68.42 - Body mass index [BMI] 45.0-49.9, adult Status: Acute Assessment and Plan: Diet and exercise (4) Elevated blood-pressure reading without diagnosis of hypertension: Code(s): R03.0 - Elevated blood-pressure reading, without diagnosis of hypertension Status: Acute Assessment and Plan: Started Coreg and lisinopril p.r.n. hydralazine Continue IV diuresis (5) Sinus tachycardia: Code(s): R00.0 - Tachycardia, unspecified Status: Acute Assessment and Plan: Most likely related to CHF exacerbation pleural effusion and hypertensive urgency IV Lasix Coreg Telemonitor P.r.n. IV metoprolol (6) Breast mass: Code(s): N63.0 - Unspecified lump in unspecified breast Status: Acute Assessment and Plan: Patient will need follow-up with PCP as outpatient (7) Kidney lesion: Code(s): N28.9 - Disorder of kidney and ureter, unspecified Status: Acute Assessment and Plan: Follow-up with PCP as outpatient further evaluation as outpatient Subjective Date/time seen: 08/25/22 16:01 HPI Chief Complaint: shortness of breath 52 years old male presented to the hospital with 2 to abnormal labs with elevated BNP patient was complaining of bloating and epigastric discomfort associated with abdominal distension and shortness of breath with activity with lower extremity swelling was evaluated by GI on lab review patient was found to have elevated BNP chest x-ray showed cardiomegaly and congestion patient was referred to the ER at the ER blood pressure systolic was in 180s heart rate was in 130s CT scan of the chest shows breast mass pulmonary edema patient was found to have hypertensive urgency associated with acute CHF exacerbation started on IV diuresis admitted to the hospital for further evaluation and treatment cardiology was consulted. 08/25/2022 interval history: 52-year-old male presented with shortness of breath and lower extremity edema, and and complains of orthopnea and elevated BNP of 4000, further evaluate patient had a cardiac echo showed severe cardiomyopathy with ejection fraction of 25-30% most likely patient is having acute on chronic systolic congestive Heart failure, with being diuresed, is feeling little better compared to when he arrived, patient will be seen by Cardiology and further recommendation to follow. patient had a CT of the chest did not show any pulmonary emboli there is a nadir
[2022-08-26] VITALS (17 sets, daily range): BP systolic 126–137; BP diastolic 85–104; PULSE 60–93; RESP 18–22; TEMP 35.6–36.6; O2SAT 93–97
[2022-08-26 05:36] LABS: Basophils Absolute Auto 0.1 K/mm3 (0.0-0.1); Basophils Percent Auto 0.8 % (0.2-1.2); Eosinophils Absolute Auto 0.2 K/mm3 (0-0.3); Eosinophils Percent Auto 3.6 % (0-4.4); Hematocrit 44.7 % (42.0-52.0); Hemoglobin 14.7 g/dL (14.0-18.0); Immature Granulocyte Absolute 0.01 K/mm3 (0.00-0.031); Immature Granulocyte Percent A 0.2 % (0-0.5); Lymphocytes Absolute Auto 1.37 K/mm3 (0.9-3.2); Lymphocytes Percent Auto 22.7 % (18.3-44.2); Mean Corpuscular HGB Conc 32.9 g/dl (32-36); Mean Corpuscular Hemoglobin 29.3 pg (26-34); Mean Corpuscular Volume 89.2 fl (80-100); Mean Platelet Volume 10.3 fl (7.4-10.4); Monocytes Absolute Auto 0.8 K/mm3 (0.1-0.6); Monocytes Percent Auto 13.1 % (2.6-8.5); Neutrophils Absolute Auto 3.6 K/mm3 (1.3-6.7); Neutrophils Percent Auto 59.6 % (45.5-73.1); Platelet Count Result 173 k/mm3 (150-375); Red Blood Count 5.01 M/mm3 (4.6-6.20); Red Cell Distribution Width 15.2 % (11.5-14.5)
[2022-08-26 06:47] LABS: Alanine Aminotransferase 29 U/L (6-50); Albumin Level 3.3 g/dL (3.5-5.1); Alkaline Phosphatase 39 U/L (38-126); Anion Gap 7 mmol/L (8-16); Aspartate Amino Transferase 32 U/L (17-59); Bilirubin,Total 2.6 mg/dL (0.2-1.3); Blood Urea Nitrogen 15 mg/dL (9-20); Calcium 7.8 mg/dL (8.4-10.2); Carbon Dioxide 28 mmol/L (22-30); Chloride 101 mmol/L (98-107); Estimated CRCL calculation 102 ml/min; Estimated Glomerular Filt Rate > 60; Glucose 91 mg/dL (65-110); Potassium 3.3 mmol/L (3.4-5.0); Sodium 136 mmol/L (137-145)
--- NOTE | 2022-08-26 09:58 | PM.PNCARD ---
Progress Note: A&P Assessment and Plan (1) Acute congestive heart failure: Qualifiers: Heart failure type: unspecified Qualified Code(s): I50.9 - Heart failure, unspecified Code(s): I50.9 - Heart failure, unspecified Status: Acute Assessment and Plan: Acute systolic heart failure. Improving with diuresis Continue IV furosemide today, perhaps shift to p.o. tomorrow Strict I&O, daily weights, low Na diet Compression stockings (2) Cardiomyopathy: Code(s): I42.9 - Cardiomyopathy, unspecified Status: Acute Assessment and Plan: New diagnosis. Echocardiogram shows LVEF 25-30%, severely enlarged LV, moderately enlarged RV with reduced RVSF, mild-moderate MR, mild TR, elevated RAP, small pericardial effusion. GDMT with Entresto, jardiance, coreg, spironolactone Eventual ischemic evaluation in the form of cardiac cath. Not appropriate for cath at this time as patient cannot adequately lay flat without orthopnea. Recommend cardiac cath once patient is euvolemic. If patient happens to be ready for discharge over the weekend, then cardiac cath can be obtained as an outpatient. (3) Dyspnea on exertion: Code(s): R06.09 - Other forms of dyspnea Status: Acute Assessment and Plan: Improving with diuresis (4) Breast mass: Code(s): N63.0 - Unspecified lump in unspecified breast Status: Acute (5) Sinus tachycardia: Code(s): R00.0 - Tachycardia, unspecified Status: Acute Assessment and Plan: Heart rate is regular at this point (6) Morbid obesity with BMI of 45.0-49.9, adult: Code(s): E66.01 - Morbid (severe) obesity due to excess calories; Z68.42 - Body mass index [BMI] 45.0-49.9, adult Status: Acute Assessment and Plan: Weight loss encouraged Subjective Date/time seen: 08/26/22 09:58 Cardiology follow up for CHF Interval history: He is feeling much better today. His abdominal fullness has improved, no shortness of breath. Still has some swelling but this is improving as well. Still has orthopnea. He denies any chest pain or palpitations. Exam Const: General: comfortable and no acute distress Other: Morbidly obese HENMT: Mouth: Yes moist mucous membranes Eyes: General: appearance normal, both eyes and all related structures Sclera: sclerae normal Neck: Neck: supple Other: JVD difficult to assess due to body habitus Resp: Effort & Inspection: normal respiratory effort Auscultation: diminished lung sounds Cardio: Rate: regular rate Rhythm: regular rhythm Heart sounds: no murmurs GI: Inspection: distended Skin: General skin exam: normal color Neuro: Speech: normal speech Extrem: General: edema Psych: Mental Status: mental status grossly normal Affect: normal affect Objective Data Vital Signs Vital Signs: Vital Signs - 24 hr 08/25/22 11:21 08/25/22 12:00 08/25/22 10:00 Temperature 37.0 C Pulse Rate 95 98 87 Respiratory Rate 16 Blood Pressure 136/98 H Pulse Oximetry 95 Oxygen Delivery 08/25/22 12:00 08/25/22 12:00 08/25/22 14:00 Temperature Pulse Rate 99 81 Respiratory Rate Blood Pressure Pulse Oximetry Oxygen Delivery Room Air 08/25/22 16:00 08/25/22 16:00 08/25/22 16:00 Temperature 37.2 C Pulse Rate 81 86 Respiratory Rate 16 Blood Pressure 113/94 H Pulse Oximetry 97 Oxygen Delivery Room Air 08/25/22 18:00 08/25/22 20:00 08/25/22 22:29 Temperature 36.6 C Pulse Rate 85 85 87 Respiratory Rate 16 Blood Pressure 123/78 Pulse Oximetry 96 Oxygen Delivery 08/25/22 20:00 08/26/22 00:00 08/26/22 00:00 Temperature 36.5 C Pulse Rate 84 Respiratory Rate 20 Blood Pressure 129/92 H Pulse Oximetry 93 Oxygen Delivery Room Air Room Air 08/25/22 20:00 08/25/22 22:00 08/26/22 00:00 Temperature Pulse Rate 78 76 85 Respiratory Rate Blood Pressure Pulse Oximetry Oxygen Delive
[2022-08-26] MEDS: HEPARIN SODIUM 5,000 UNITS/ML VIAL 5000 UNITS SUB-Q ×2 (10:03→21:37)
[2022-08-26] MEDS: ASPIRIN 81 MG ENTERIC TABLET PO (10:04)
[2022-08-26] MEDS: FUROSEMIDE INJ 40 MG/4 ML VIAL 60 MG IV PUSH ×2 (10:04→18:51)
[2022-08-26] MEDS: EMPAGLIFLOZIN 10 MG TABLET PO (10:04)
[2022-08-26] MEDS: carvediloL 12.5 MG TABLET PO ×2 (10:05→21:37)
[2022-08-26] MEDS: FAMOTIDINE 20 MG TABLET PO ×2 (10:06→21:37)
[2022-08-26] MEDS: SPIRONOLACTONE 12.5 MG TABLET PO (10:07)
--- NOTE | 2022-08-26 15:17 | PCOTNOTE ---
OT orders for patient received. Upon entering patient's room, patient is up and moving around the room independently. He states he showered on his own yesterday. No skilled therapy need identified at this time. Called ordering doctor, Dr. Adams, and left voicemail explaining this and that we were discharging therapy orders at this time.
--- NOTE | 2022-08-26 16:26 | PM.IMPN ---
Progress Note: A&P Assessment and Plan (1) Epigastric pressure: Code(s): R10.13 - Epigastric pain Status: Acute Assessment and Plan: Most likely related to hypertensive urgency Serial EKG serial troponin telemonitor Continue Pepcid Started aspirin beta-effie Coreg lisinopril IV Lasix Cardiology was consulted 08/26/2022 interval history: 52-year-old male presented with shortness of breath and lower extremity edema, and and complains of orthopnea and elevated BNP of 4000, further evaluate patient had a cardiac echo showed severe cardiomyopathy with ejection fraction of 25-30% most likely patient is having acute on chronic systolic congestive Heart failure, with being diuresed with IV lasix and engineer specialist added GDMT with Entresto, Jardiance, coreg, and spironolactone,patient is feeling little better compared to when he arrived, currently significant symptoms of orthopnea patient is unable to have cardiac catheterization once clinically stable patient will need ischemic cardiomyopathy evaluate with cardiac catheterization, patient had a CT of the chest did not show any pulmonary emboli there is a concern patient patient has left breast mass I spoke with the patient and his patient will need further evaluation with mammogram and ultrasound as outpatient, will continue to monitor will have PT OT evaluate the patient. (2) SOB (shortness of breath): Code(s): R06.02 - Shortness of breath Status: Acute Assessment and Plan: Acute CHF exacerbation associated with pleural effusion start IV diuresis follow echo results cardiology consult (3) Morbid obesity with BMI of 45.0-49.9, adult: Code(s): E66.01 - Morbid (severe) obesity due to excess calories; Z68.42 - Body mass index [BMI] 45.0-49.9, adult Status: Acute Assessment and Plan: Diet and exercise (4) Elevated blood-pressure reading without diagnosis of hypertension: Code(s): R03.0 - Elevated blood-pressure reading, without diagnosis of hypertension Status: Acute Assessment and Plan: Started Coreg and lisinopril p.r.n. hydralazine Continue IV diuresis (5) Sinus tachycardia: Code(s): R00.0 - Tachycardia, unspecified Status: Acute Assessment and Plan: Most likely related to CHF exacerbation pleural effusion and hypertensive urgency IV Lasix Coreg Telemonitor P.r.n. IV metoprolol (6) Breast mass: Code(s): N63.0 - Unspecified lump in unspecified breast Status: Acute Assessment and Plan: Patient will need follow-up with PCP as outpatient (7) Kidney lesion: Code(s): N28.9 - Disorder of kidney and ureter, unspecified Status: Acute Assessment and Plan: Follow-up with PCP as outpatient further evaluation as outpatient Subjective Date/time seen: 08/26/22 16:26 08/26/2022 interval history: 52-year-old male presented with shortness of breath and lower extremity edema, and and complains of orthopnea and elevated BNP of 4000, further evaluate patient had a cardiac echo showed severe cardiomyopathy with ejection fraction of 25-30% most likely patient is having acute on chronic systolic congestive Heart failure, with being diuresed with IV lasix and engineer specialist added GDMT with Entresto, Jardiance, coreg, and spironolactone,patient is feeling little better compared to when he arrived, currently significant symptoms of orthopnea patient is unable to have cardiac catheterization once clinically stable patient will need ischemic cardiomyopathy evaluate with cardiac catheterization, patient had a CT of the chest did not show any pulmonary emboli there is a concern patient patient has left breast mass I spoke with the patient and his patient will need further evaluation with mammogram and ultrasound as outpatient, will continue to monitor will have PT OT evaluate the patient. Exam Narrative: morbidly obese Patient is comfortable, NAD HEENT: eyes are clear
[2022-08-26] MEDS: POTASSIUM CHLORIDE 20 MEQ TABLET 40 MEQ PO (23:44)
[2022-08-27] VITALS (20 sets, daily range): BP systolic 108–145; BP diastolic 71–107; PULSE 63–84; RESP 18–22; TEMP 35.7–36.6; O2SAT 92–97
[2022-08-27 05:02] LABS: Basophils Percent Auto 0.7 % (0.2-1.2); Eosinophils Absolute Auto 0.3 K/mm3 (0-0.3); Eosinophils Percent Auto 4.7 % (0-4.4); Hematocrit 45.3 % (42.0-52.0); Hemoglobin 15.1 g/dL (14.0-18.0); Immature Granulocyte Absolute 0.01 K/mm3 (0.00-0.031); Immature Granulocyte Percent A 0.2 % (0-0.5); Lymphocytes Absolute Auto 1.65 K/mm3 (0.9-3.2); Lymphocytes Percent Auto 29.7 % (18.3-44.2); Mean Corpuscular HGB Conc 33.3 g/dl (32-36); Mean Corpuscular Hemoglobin 28.7 pg (26-34); Mean Corpuscular Volume 86.1 fl (80-100); Mean Platelet Volume 10.2 fl (7.4-10.4); Monocytes Absolute Auto 0.9 K/mm3 (0.1-0.6); Monocytes Percent Auto 15.5 % (2.6-8.5); Neutrophils Absolute Auto 2.7 K/mm3 (1.3-6.7); Neutrophils Percent Auto 49.2 % (45.5-73.1); Platelet Count Result 190 k/mm3 (150-375); Red Blood Count 5.26 M/mm3 (4.6-6.20); Red Cell Distribution Width 14.8 % (11.5-14.5); White Blood Count 5.6 K/mm3 (4.5-10.0)
[2022-08-27 05:12] LABS: Alanine Aminotransferase 30 U/L (6-50); Albumin Level 3.4 g/dL (3.5-5.1); Alkaline Phosphatase 40 U/L (38-126); Anion Gap 4 mmol/L (8-16); Aspartate Amino Transferase 33 U/L (17-59); Blood Urea Nitrogen 17 mg/dL (9-20); Carbon Dioxide 32 mmol/L (22-30); Chloride 101 mmol/L (98-107); Estimated CRCL calculation 94 ml/min; Estimated Glomerular Filt Rate > 60; Glucose 85 mg/dL (65-110); Potassium 3.5 mmol/L (3.4-5.0); Sodium 137 mmol/L (137-145)
[2022-08-27] MEDS: carvediloL 12.5 MG TABLET PO ×2 (09:26→21:15)
[2022-08-27] MEDS: FAMOTIDINE 20 MG TABLET PO ×2 (09:26→21:15)
[2022-08-27] MEDS: SACUBITRIL/VALSARTAN 24-26 MG TABLET 1 TAB PO ×2 (09:26→21:15)
[2022-08-27] MEDS: HEPARIN SODIUM 5,000 UNITS/ML VIAL 5000 UNITS SUB-Q ×2 (09:27→21:15)
[2022-08-27] MEDS: ASPIRIN 81 MG ENTERIC TABLET PO (09:27)
[2022-08-27] MEDS: EMPAGLIFLOZIN 10 MG TABLET PO (09:27)
[2022-08-27] MEDS: SPIRONOLACTONE 25 MG TABLET PO (09:27)
[2022-08-27] MEDS: FUROSEMIDE INJ 40 MG/4 ML VIAL 60 MG IV PUSH ×2 (09:34→17:41)
--- NOTE | 2022-08-27 13:49 | PM.PNCARD ---
Progress Note: A&P Assessment and Plan (1) Epigastric pressure: Code(s): R10.13 - Epigastric pain Status: Acute Assessment and Plan: Most likely related to hypertensive urgency Serial EKG serial troponin telemonitor Continue Pepcid Started aspirin beta-effie Coreg lisinopril IV Lasix Cardiology was consulted 08/26/2022 interval history: 52-year-old male presented with shortness of breath and lower extremity edema, and and complains of orthopnea and elevated BNP of 4000, further evaluate patient had a cardiac echo showed severe cardiomyopathy with ejection fraction of 25-30% most likely patient is having acute on chronic systolic congestive Heart failure, with being diuresed with IV lasix and needle molder added GDMT with Entresto, Jardiance, coreg, and spironolactone,patient is feeling little better compared to when he arrived, currently significant symptoms of orthopnea patient is unable to have cardiac catheterization once clinically stable patient will need ischemic cardiomyopathy evaluate with cardiac catheterization, patient had a CT of the chest did not show any pulmonary emboli there is a concern patient patient has left breast mass I spoke with the patient and his patient will need further evaluation with mammogram and ultrasound as outpatient, will continue to monitor will have PT OT evaluate the patient. (2) SOB (shortness of breath): Code(s): R06.02 - Shortness of breath Status: Acute Assessment and Plan: Acute CHF exacerbation associated with pleural effusion start IV diuresis follow echo results cardiology consult (3) Morbid obesity with BMI of 45.0-49.9, adult: Code(s): E66.01 - Morbid (severe) obesity due to excess calories; Z68.42 - Body mass index [BMI] 45.0-49.9, adult Status: Acute Assessment and Plan: Diet and exercise (4) Elevated blood-pressure reading without diagnosis of hypertension: Code(s): R03.0 - Elevated blood-pressure reading, without diagnosis of hypertension Status: Acute Assessment and Plan: Started Coreg and lisinopril p.r.n. hydralazine Continue IV diuresis (5) Sinus tachycardia: Code(s): R00.0 - Tachycardia, unspecified Status: Acute Assessment and Plan: Most likely related to CHF exacerbation pleural effusion and hypertensive urgency IV Lasix Coreg Telemonitor P.r.n. IV metoprolol (6) Breast mass: Code(s): N63.0 - Unspecified lump in unspecified breast Status: Acute Assessment and Plan: Patient will need follow-up with PCP as outpatient (7) Kidney lesion: Code(s): N28.9 - Disorder of kidney and ureter, unspecified Status: Acute Assessment and Plan: Follow-up with PCP as outpatient further evaluation as outpatient (8) Cardiomyopathy: Code(s): I42.9 - Cardiomyopathy, unspecified Status: Acute Plan 52-year-old man with newly diagnosed cardiomyopathy heart failure with reduced ejection fraction. A detailed conversation with him and his indicates he has been having symptoms of this since back in April/May of 2022. Almost certainly this is a nonischemic process. 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 We will continue his current medical regimen and put a [facility] referral in for him today. Expect him to be discharged in the next 24-48 hours with plans to see Dr. Lambert in follow-up and coronary angiography will take place as an outpatient to ensure this is not an ischemic process. Albin Butterfield MD [facility] Subjective Date/time seen: Date of service: 08/27/22 13:49 Interval history: Follow-up visit in this 52-year-old man with: Newly diagnosed dilated cardiomyopathy with and heart failure with reduced ejection fraction. Patient started on standard medical therapy and states he feels dramatically better than upon
[2022-08-27] MEDS: POTASSIUM CHLORIDE 20 MEQ TABLET 40 MEQ PO (14:21)
--- NOTE | 2022-08-27 16:47 | PM.IMPN ---
Progress Note: A&P Assessment and Plan (1) Epigastric pressure: Code(s): R10.13 - Epigastric pain Status: Acute Assessment and Plan: Most likely related to hypertensive urgency Serial EKG serial troponin telemonitor Continue Pepcid Started aspirin beta-effie Coreg lisinopril IV Lasix Cardiology was consulted 08/27/2022 interval history: 52-year-old male presented with shortness of breath and lower extremity edema, and and complains of orthopnea and elevated BNP of 4000, further evaluate patient had a cardiac echo showed severe cardiomyopathy with ejection fraction of 25-30% most likely patient is having acute on chronic systolic congestive Heart failure, with being diuresed with IV lasix and oral surgeon added GDMT with Entresto, Jardiance, coreg, and spironolactone,patient is feeling little better compared to when he arrived, currently significant symptoms of orthopnea patient is unable to have cardiac catheterization once clinically stable patient will need ischemic cardiomyopathy evaluate with cardiac catheterization, patient had a CT of the chest did not show any pulmonary emboli there is a concern patient patient has left breast mass I spoke with the patient and his patient will need further evaluation with mammogram and ultrasound as outpatient, patient remains clinically stable has no new complaint continue present management, will continue to monitor will have PT OT evaluate the patient. (2) SOB (shortness of breath): Code(s): R06.02 - Shortness of breath Status: Acute Assessment and Plan: Acute CHF exacerbation associated with pleural effusion start IV diuresis follow echo results cardiology consult (3) Morbid obesity with BMI of 45.0-49.9, adult: Code(s): E66.01 - Morbid (severe) obesity due to excess calories; Z68.42 - Body mass index [BMI] 45.0-49.9, adult Status: Acute Assessment and Plan: Diet and exercise (4) Elevated blood-pressure reading without diagnosis of hypertension: Code(s): R03.0 - Elevated blood-pressure reading, without diagnosis of hypertension Status: Acute Assessment and Plan: Started Coreg and lisinopril p.r.n. hydralazine Continue IV diuresis (5) Sinus tachycardia: Code(s): R00.0 - Tachycardia, unspecified Status: Acute Assessment and Plan: Most likely related to CHF exacerbation pleural effusion and hypertensive urgency IV Lasix Coreg Telemonitor P.r.n. IV metoprolol (6) Breast mass: Code(s): N63.0 - Unspecified lump in unspecified breast Status: Acute Assessment and Plan: Patient will need follow-up with PCP as outpatient (7) Kidney lesion: Code(s): N28.9 - Disorder of kidney and ureter, unspecified Status: Acute Assessment and Plan: Follow-up with PCP as outpatient further evaluation as outpatient Subjective Date/time seen: 08/27/22 16:47 08/27/2022 interval history: 52-year-old male presented with shortness of breath and lower extremity edema, and and complains of orthopnea and elevated BNP of 4000, further evaluate patient had a cardiac echo showed severe cardiomyopathy with ejection fraction of 25-30% most likely patient is having acute on chronic systolic congestive Heart failure, with being diuresed with IV lasix and oral surgeon added GDMT with Entresto, Jardiance, coreg, and spironolactone,patient is feeling little better compared to when he arrived, currently significant symptoms of orthopnea patient is unable to have cardiac catheterization once clinically stable patient will need ischemic cardiomyopathy evaluate with cardiac catheterization, patient had a CT of the chest did not show any pulmonary emboli there is a concern patient patient has left breast mass I spoke with the patient and his patient will need further evaluation with mammogram and ultrasound as outpatient, patient remains clinically stable has no new complaint continue present
[2022-08-28] VITALS (15 sets, daily range): BP systolic 104–129; BP diastolic 65–90; PULSE 59–80; RESP 16–20; TEMP 36.2–36.8; O2SAT 92–96
[2022-08-28 06:12] LABS: Hematocrit 50.7 % (42.0-52.0); Hemoglobin 16.8 g/dL (14.0-18.0); Mean Corpuscular HGB Conc 33.1 g/dl (32-36); Mean Corpuscular Hemoglobin 28.6 pg (26-34); Mean Corpuscular Volume 86.2 fl (80-100); Mean Platelet Volume 9.7 fl (7.4-10.4); Platelet Count Result 208 k/mm3 (150-375); Red Blood Count 5.88 M/mm3 (4.6-6.20); Red Cell Distribution Width 14.6 % (11.5-14.5); White Blood Count 6.1 K/mm3 (4.5-10.0)
[2022-08-28 06:21] LABS: Anion Gap 6 mmol/L (8-16); Blood Urea Nitrogen 15 mg/dL (9-20); Calcium 8.3 mg/dL (8.4-10.2); Carbon Dioxide 29 mmol/L (22-30); Chloride 97 mmol/L (98-107); Estimated CRCL calculation 111 ml/min; Estimated Glomerular Filt Rate > 60; Glucose 87 mg/dL (65-110); Magnesium 2.1 mg/dL (1.6-2.3); Potassium 3.2 mmol/L (3.4-5.0); Sodium 132 mmol/L (137-145)
[2022-08-28] MEDS: SPIRONOLACTONE 25 MG TABLET PO (09:24)
[2022-08-28] MEDS: carvediloL 12.5 MG TABLET PO ×2 (09:25→20:15)
[2022-08-28] MEDS: SACUBITRIL/VALSARTAN 24-26 MG TABLET 1 TAB PO ×2 (09:25→20:16)
[2022-08-28] MEDS: FAMOTIDINE 20 MG TABLET PO ×2 (09:25→20:16)
[2022-08-28] MEDS: EMPAGLIFLOZIN 10 MG TABLET PO (09:25)
[2022-08-28] MEDS: ASPIRIN 81 MG ENTERIC TABLET PO (09:25)
[2022-08-28] MEDS: HEPARIN SODIUM 5,000 UNITS/ML VIAL 5000 UNITS SUB-Q ×2 (09:25→20:16)
[2022-08-28] MEDS: FUROSEMIDE TABLET 20 MG, FUROSEMIDE TABLET 40 MG 60 MG PO ×2 (13:31→20:15)
[2022-08-28] MEDS: POTASSIUM CHLORIDE 20 MEQ PACKET (FOR LIQUID) 40 MEQ PO (13:31)
--- NOTE | 2022-08-28 14:58 | PM.PNCARD ---
Progress Note: A&P Assessment and Plan (1) Acute HFrEF (heart failure with reduced ejection fraction): Code(s): I50.21 - Acute systolic (congestive) heart failure Status: Acute Assessment and Plan: New diagnosis severe LV systolic dysfunction EF 25-30% etiology unclear possible viral etiology. LifeVest for sudden cardiac risk reduction due to ventricular tachycardia and ventricular fibrillation. LifeVest has been ordered. Patient must be fitted prior to discharge. He is still waiting on this. Continue guideline directed medical therapy and diuresis. He has responded very well thus far-11.8 L to date. He remains mildly volume overloaded but much improved. Change to oral furosemide 60 mg p.o. b.i.d.. Monitor electrolytes, check renal function in a.m.. Plan to repeat basic metabolic panel in 1 week as an outpatient next week after discharge. Continue spironolactone 25 mg daily. Apnea link overnight to screen for ADA. Provided no new issues overnight and LifeVest has been fitted any continues to tolerate medical therapy with satisfactory electrolytes and renal function anticipate discharge home tomorrow morning follow up as an outpatient within the next 2-4 weeks. BMP in 1 week as an outpatient. (2) Cardiomyopathy: Qualifiers: Cardiomyopathy type: dilated Qualified Code(s): I42.0 - Dilated cardiomyopathy Code(s): I42.9 - Cardiomyopathy, unspecified Status: Acute Assessment and Plan: Etiology unclear likely nonischemic cardiomyopathy. EF 25 30%. Continue to optimize guideline directed medical therapy as tolerated. Continue carvedilol 12.5 mg twice daily, Jardiance 10 mg daily, Entresto 24/26 mg twice daily, spironolactone 25 once daily and furosemide 60 mg twice daily. Monitor electrolytes and renal function closely. Anticipated outpatient left heart catheterization for delineation of his coronary anatomy. Continue aspirin therapy. (3) Hypertension: Qualifiers: Hypertension type: unspecified Qualified Code(s): I10 - Essential (primary) hypertension Code(s): I10 - Essential (primary) hypertension Status: Acute Assessment and Plan: Blood pressure elevated initially better controlled on medical therapy. Continue present regimen as listed above. (4) Morbid obesity with BMI of 45.0-49.9, adult: Code(s): E66.01 - Morbid (severe) obesity due to excess calories; Z68.42 - Body mass index [BMI] 45.0-49.9, adult Status: Acute Assessment and Plan: Diet and exercise Lifestyle modification counseling. ADA screening as above. (5) Hyperlipidemia: Code(s): E78.5 - Hyperlipidemia, unspecified Status: Acute Assessment and Plan: LDL elevated 149. Would recommend initiation of statin therapy particularly if CAD confirmed on left heart catheterization. Recommendation to follow in this regard. Subjective Date/time seen: Date of service: 08/28/22 14:58 Interval history: Follow-up visit in this 52-year-old man with: Newly diagnosed dilated cardiomyopathy with and heart failure with reduced ejection fraction. Patient feels markedly improved. Shortness breath has resolved. No orthopnea. No chest pain. Denies dizziness. Tolerating medications thus far. Awaiting LifeVest to be placed to date. Tolerating medical therapy. Edema much improved and he is very pleased with his response thus far. Patient is 11.8 L negative thus far to date. at bedside. Review of Systems Review of Systems: Remainder of the review of systems is otherwise negative aside from that noted in the HPI. All systems reviewed & are unremarkable except as noted in HPI and below Constitutional: Constitutional: Reports as per HPI and Reports no additional constitutional complaints Eyes: Eyes: Reports as per HPI and Reports no additional eye complaints ENT: Reports system reviewed and no additional complaints, except as documented and Report
--- NOTE | 2022-08-28 15:12 | PM.IMPN ---
Progress Note: A&P Assessment and Plan (1) Epigastric pressure: Code(s): R10.13 - Epigastric pain Status: Acute Assessment and Plan: Most likely related to hypertensive urgency Serial EKG serial troponin telemonitor Continue Pepcid Started aspirin beta-effie Coreg lisinopril IV Lasix Cardiology was consulted 08/28/2022 interval history: 52-year-old male presented with shortness of breath and lower extremity edema, and and complains of orthopnea and elevated BNP of 4000, further evaluate patient had a cardiac echo showed severe cardiomyopathy with ejection fraction of 25-30% most likely patient is having acute on chronic systolic congestive Heart failure, with being diuresed with IV lasix and 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atheterization, patient had a CT of the chest did not show any pulmonary emboli there is a concern patient patient has left breast mass I spoke with the patient and his patient will need further evaluation with mammogram and ultrasound as outpatient, patient remains clinically stable has no new complaint chest pain shortness of breath or dizzy, patient seen by Cardiology patient will need LifeVest before going home, pending insurance authorization, continue present management, will continue to monitor will have PT OT evaluate the patient. (2) SOB (shortness of breath): Code(s): R06.02 - Shortness of breath Status: Acute Assessment and Plan: Acute CHF exacerbation associated with pleural effusion start IV diuresis follow echo results cardiology consult (3) Morbid obesity with BMI of 45.0-49.9, adult: Code(s): E66.01 - Morbid (severe) obesity due to excess calories; Z68.42 - Body mass index [BMI] 45.0-49.9, adult Status: Acute Assessment and Plan: Diet and exercise (4) Elevated blood-pressure reading without diagnosis of hypertension: Code(s): R03.0 - Elevated blood-pressure reading, without diagnosis of hypertension Status: Acute Assessment and Plan: Started Coreg and lisinopril p.r.n. hydralazine Continue IV diuresis (5) Sinus tachycardia: Code(s): R00.0 - Tachycardia, unspecified Status: Acute Assessment and Plan: Most likely related to CHF exacerbation pleural effusion and hypertensive urgency IV Lasix Coreg Telemonitor P.r.n. IV metoprolol (6) Breast mass: Code(s): N63.0 - Unspecified lump in unspecified breast Status: Acute Assessment and Plan: Patient will need follow-up with PCP as outpatient (7) Kidney lesion: Code(s): N28.9 - Disorder of kidney and ureter, unspecified Status: Acute Assessment and Plan: Follow-up with PCP as outpatient further evaluation as outpatient Subjective Date/time seen: 08/28/22 15:12 Most likely related to hypertensive urgency Serial EKG serial troponin telemonitor Continue Pepcid Started aspirin beta-effie Coreg lisinopril IV Lasix Cardiology was consulted 08/28/2022 interval history: 52-year-old male presented with shortness of breath and lower extremity edema, and and complains of orthopnea and elevated BNP of 4000, further evaluate patient had a cardiac echo showed severe cardiomyopathy with ejection fraction of 25-30% most likely patient is having acute on chronic systolic congestive Heart failure, with being diuresed with IV lasix and 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
[2022-08-29] VITALS (10 sets, daily range): BP systolic 93–124; BP diastolic 54–85; PULSE 64–79; RESP 18–21; TEMP 35.5–36.3; O2SAT 94–97
[2022-08-29 05:21] LABS: Hematocrit 54.2 % (42.0-52.0); Hemoglobin 17.9 g/dL (14.0-18.0); Mean Corpuscular Hemoglobin 28.6 pg (26-34); Mean Corpuscular Volume 86.6 fl (80-100); Mean Platelet Volume 9.9 fl (7.4-10.4); Platelet Count Result 219 k/mm3 (150-375); Red Blood Count 6.26 M/mm3 (4.6-6.20); Red Cell Distribution Width 14.9 % (11.5-14.5); White Blood Count 6.4 K/mm3 (4.5-10.0)
[2022-08-29 05:41] LABS: Anion Gap 7 mmol/L (8-16); Blood Urea Nitrogen 16 mg/dL (9-20); Calcium 8.5 mg/dL (8.4-10.2); Carbon Dioxide 32 mmol/L (22-30); Chloride 100 mmol/L (98-107); Estimated CRCL calculation 87 ml/min; Estimated Glomerular Filt Rate 58; Glucose 122 mg/dL (65-110); Magnesium 2.3 mg/dL (1.6-2.3); Potassium 3.7 mmol/L (3.4-5.0); Sodium 139 mmol/L (137-145)
[2022-08-29] MEDS: POTASSIUM CHLORIDE 20 MEQ TABLET 40 MEQ PO (10:10)
[2022-08-29] MEDS: SACUBITRIL/VALSARTAN 24-26 MG TABLET 1 TAB PO (10:12)
[2022-08-29] MEDS: ASPIRIN 81 MG ENTERIC TABLET PO (10:12)
[2022-08-29] MEDS: SPIRONOLACTONE 25 MG TABLET PO (10:12)
[2022-08-29] MEDS: HEPARIN SODIUM 5,000 UNITS/ML VIAL 5000 UNITS SUB-Q (10:12)
[2022-08-29] MEDS: carvediloL 12.5 MG TABLET PO (10:13)
[2022-08-29] MEDS: EMPAGLIFLOZIN 10 MG TABLET PO (10:13)
[2022-08-29] MEDS: FAMOTIDINE 20 MG TABLET PO (10:13)
[2022-08-29] MEDS: FUROSEMIDE TABLET 20 MG, FUROSEMIDE TABLET 40 MG 60 MG PO (11:35)
--- NOTE | 2022-08-29 12:30 | PM.DS ---
DS: Admitting Diagnosis Discharge Date 08/29/2022 Admitting Diagnosis shortness of breath DS: Discharge Diagnosis Discharge Diagnosis (1) Epigastric pressure: Code(s): R10.13 - Epigastric pain Status: Deleted Assessment and Plan: Most likely related to hypertensive urgency Serial EKG serial troponin telemonitor Continue Pepcid Started aspirin beta-effie Coreg lisinopril IV Lasix Cardiology was consulted 08/28/2022 interval history: 52-year-old male presented with shortness of breath and lower extremity edema, and and complains of orthopnea and elevated BNP of 4000, further evaluate patient had a cardiac echo showed severe cardiomyopathy with ejection fraction of 25-30% most likely patient is having acute on chronic systolic congestive Heart failure, with being diuresed with IV lasix and 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 with Entresto, Jardiance, coreg, and spironolactone,patient is feeling little better compared to when he arrived, currently significant symptoms of orthopnea patient is unable to have cardiac catheterization once clinically stable patient will need ischemic cardiomyopathy evaluate with cardiac catheterization, patient had a CT of the chest did not show any pulmonary emboli there is a concern patient patient has left breast mass I spoke with the patient and his patient will need further evaluation with mammogram and ultrasound as outpatient, patient remains clinically stable has no new complaint chest pain shortness of breath or dizzy, patient seen by Cardiology patient will need LifeVest before going home, pending insurance authorization, continue present management, will continue to monitor will have PT OT evaluate the patient. (2) SOB (shortness of breath): Code(s): R06.02 - Shortness of breath Status: Resolved Assessment and Plan: Acute CHF exacerbation associated with pleural effusion start IV diuresis follow echo results cardiology consult (3) Morbid obesity with BMI of 45.0-49.9, adult: Code(s): E66.01 - Morbid (severe) obesity due to excess calories; Z68.42 - Body mass index [BMI] 45.0-49.9, adult Status: Acute Assessment and Plan: Diet and exercise (4) Elevated blood-pressure reading without diagnosis of hypertension: Code(s): R03.0 - Elevated blood-pressure reading, without diagnosis of hypertension Status: Deleted Assessment and Plan: Started Coreg and lisinopril p.r.n. hydralazine Continue IV diuresis (5) Sinus tachycardia: Code(s): R00.0 - Tachycardia, unspecified Status: Resolved Assessment and Plan: Most likely related to CHF exacerbation pleural effusion and hypertensive urgency IV Lasix Coreg Telemonitor P.r.n. IV metoprolol (6) Breast mass: Code(s): N63.0 - Unspecified lump in unspecified breast Status: Acute Assessment and Plan: Patient will need follow-up with PCP as outpatient (7) Kidney lesion: Code(s): N28.9 - Disorder of kidney and ureter, unspecified Status: Acute Assessment and Plan: Follow-up with PCP as outpatient further evaluation as outpatient DS: Summary Hospital Course Reason for hospitalization: Chief Complaint: 52 years old male presented to the hospital with 2 to abnormal labs with elevated BNP patient was complaining of bloating and epigastric discomfort associated with abdominal distension and shortness of breath with activity with lower extremity swelling was evaluated by GI on lab review patient was found to have elevated BNP chest x-ray showed cardiomegaly and congestion patient was referred to the ER at the ER blood pressure systolic was in 180s heart rate was in 130s CT scan of the chest shows breast mass pulmonary edema patient was found to have hypertensive urgency associated with acute CHF exacerbation started on IV diuresis admitted to the hospital for further evaluation and treatment cardiology was consulted Hospital Course: 52-year-
--- NOTE | 2022-08-29 13:27 | PM.PNCARD ---
Progress Note: A&P Assessment and Plan (1) Acute HFrEF (heart failure with reduced ejection fraction): Code(s): I50.21 - Acute systolic (congestive) heart failure Status: Acute Assessment and Plan: New diagnosis severe LV systolic dysfunction EF 25-30% etiology unclear possible viral etiology. LifeVest for sudden cardiac risk reduction due to ventricular tachycardia and ventricular fibrillation. LifeVest has been ordered. Patient must be fitted prior to discharge. He is still waiting on this. Continue guideline directed medical therapy and diuresis. He has responded very well thus far-11.8 L to date. He remains mildly volume overloaded but much improved. Continue Furosemide 60 mg p.o. b.i.d.. Stable. Continue potassium supplementation 30 mEq daily for now. Plan to repeat basic metabolic panel in 1 week as an outpatient next week after discharge. Continue spironolactone 25 mg daily. Apnea link overnight to screen for ADA. Provided no new issues overnight and LifeVest has been fitted any continues to tolerate medical therapy with satisfactory electrolytes and renal function anticipate discharge home tomorrow morning follow up as an outpatient within the next 2-4 weeks. BMP in 1 week as an outpatient. Stable for discharge home today to follow with Dr. Lambert as an outpatient for scheduling with left heart catheterization and compliance with LifeVest. He was counseled not to engage in strenuous and or significant sexual activity until otherwise advised. Call with any concerns or questions or weight gain. All questions answered to their satisfaction. (2) Cardiomyopathy: Qualifiers: Cardiomyopathy type: dilated Qualified Code(s): I42.0 - Dilated cardiomyopathy Code(s): I42.9 - Cardiomyopathy, unspecified Status: Acute Assessment and Plan: Etiology unclear likely nonischemic cardiomyopathy. EF 25 30%. Continue to optimize guideline directed medical therapy as tolerated. Continue carvedilol 12.5 mg twice daily, Jardiance 10 mg daily, Entresto 24/26 mg twice daily, spironolactone 25 once daily and furosemide 60 mg twice daily. Monitor electrolytes and renal function closely. Anticipated outpatient left heart catheterization for delineation of his coronary anatomy. Continue aspirin therapy. (3) Hypertension: Qualifiers: Hypertension type: unspecified Qualified Code(s): I10 - Essential (primary) hypertension Code(s): I10 - Essential (primary) hypertension Status: Acute Assessment and Plan: Blood pressure elevated initially better controlled on medical therapy. Continue present regimen as listed above. (4) Morbid obesity with BMI of 45.0-49.9, adult: Code(s): E66.01 - Morbid (severe) obesity due to excess calories; Z68.42 - Body mass index [BMI] 45.0-49.9, adult Status: Acute Assessment and Plan: Diet and exercise Lifestyle modification counseling. Severe ADA suspected AHI 45 on apnea link. Outpatient sleep study. (5) Hyperlipidemia: Code(s): E78.5 - Hyperlipidemia, unspecified Status: Acute Assessment and Plan: LDL elevated 149. Would recommend initiation of statin therapy particularly if CAD confirmed on left heart catheterization. Recommendation to follow in this regard. Subjective Date/time seen: Date of service:08/29/22 13:27 Interval history: Follow-up visit in this 52-year-old man with: Newly diagnosed dilated cardiomyopathy with and heart failure with reduced ejection fraction. Patient feels even better today. Edema improving still responding very well to oral diuretics. Potassium 3.7 this morning unacceptable. at bedside. He feels well and wishes to go home. Denies significant chest pain, shortness of breath, dizziness. No orthopnea. Sleeping well. He was fitted with LifeVest yesterday afternoon. Review of Systems Review of Systems: All systems reviewed & are unrem
== END 2022-08-29 14:30 | disposition home or self-care (01) | DRG 291 ==
LOC: ANHED 20:58 → ANHIMU 22:52
PROVIDERS: Emergency Medicine; Admitting Provider Internal Medicine; Emergency Provider Physician Assistant; PCP Family Medicine Adolescent Medicine; Visit Provider Family Medicine
DX: I11.0 Hypertensive heart disease with heart failure (principal); I50.21 Acute systolic (congestive) heart failure; Z68.41 Body mass index [BMI] 40.0-44.9, adult; I16.0 Hypertensive urgency; I42.0 Dilated cardiomyopathy; E66.01 Morbid (severe) obesity due to excess calories; R03.0 Elevated blood-pressure reading, without diagnosis of hypertension; N28.9 Disorder of kidney and ureter, unspecified; N63.0 Unspecified lump in unspecified breast; R00.0 Tachycardia, unspecified; G47.33 Obstructive sleep apnea (adult) (pediatric); E78.5 Hyperlipidemia, unspecified
CPT/HCPCS: 36415; 71046; 71275; 74018; 74177; 80048; 80053; 80076; 81001; 83735; 83880; 84443; 84484; 85025; 85027; 85380; 85610; 85652; 85730; 86140; 87636; 93005; 96372; 96374; 96375; 96376; 99285; A9270; C8929; G0378; J1644; J1940; Q9957; Q9967

== ENCOUNTER 2022-09-21 00:46 | Day surgery (SDC) | payer OTHER, SELFPAY ==
[2022-09-20 12:51] VITALS: BMI 39.1
[2022-09-21] VITALS (10 sets, daily range): BP systolic 95–133; BP diastolic 50–103; PULSE 83–109; RESP 12–22; TEMP 37.1; O2SAT 94–100
--- NOTE | 2022-09-21 10:31 | ECG_ITS ---
Measurements Intervals [place] Rate: 99 P: [place]: 0 QRS: -38 QRSD: 110 T: 142 QT: 372 QTc: 479 Interpretive Statements ATRIAL FIBRILLATION LEFT AXIS DEVIATION PATTERN CONSISTENT WITH PULMONARY DISEASE LEFT VENTRICULAR HYPERTROPHY WITH ST-T CHANGE BORDERLINE ST-T WAVE ABNORMALITY- LATERAL LEADS BASELINE ARTIFACT- I, II, AVR ABNORMAL ECG COMPARED TO ECG 08/24/2022 12:44:03 ATRIAL FIBRILLATION NOW PRESENT Electronically Signed On 09-21-2022 11:28:29 CDT by Perry Negron D.O.
[2022-09-21 11:25] LABS: Basophils Percent Auto 0.5 % (0.2-1.2); Eosinophils Absolute Auto 0.2 K/mm3 (0-0.3); Eosinophils Percent Auto 2.2 % (0-4.4); Hematocrit 54.4 % (42.0-52.0); Hemoglobin 18.7 g/dL (14.0-18.0); Immature Granulocyte Absolute 0.02 K/mm3 (0.00-0.031); Immature Granulocyte Percent A 0.2 % (0-0.5); Lymphocytes Absolute Auto 2.36 K/mm3 (0.9-3.2); Lymphocytes Percent Auto 28.8 % (18.3-44.2); Mean Corpuscular HGB Conc 34.4 g/dl (32-36); Mean Corpuscular Hemoglobin 28.5 pg (26-34); Mean Corpuscular Volume 82.9 fl (80-100); Mean Platelet Volume 10.3 fl (7.4-10.4); Monocytes Absolute Auto 0.7 K/mm3 (0.1-0.6); Neutrophils Absolute Auto 4.9 K/mm3 (1.3-6.7); Neutrophils Percent Auto 59.3 % (45.5-73.1); Platelet Count Result 235 k/mm3 (150-375); Red Blood Count 6.56 M/mm3 (4.6-6.20); Red Cell Distribution Width 14.4 % (11.5-14.5); White Blood Count 8.2 K/mm3 (4.5-10.0)
[2022-09-21 11:39] LABS: Anion Gap 8 mmol/L (8-16); Blood Urea Nitrogen 24 mg/dL (9-20); Calcium 9.1 mg/dL (8.4-10.2); Carbon Dioxide 27 mmol/L (22-30); Chloride 104 mmol/L (98-107); Estimated CRCL calculation 93 ml/min; Estimated Glomerular Filt Rate > 60; Glucose 107 mg/dL (65-110); Potassium 4.2 mmol/L (3.4-5.0); Sodium 139 mmol/L (137-145)
--- NOTE | 2022-09-21 13:00 | HP_ITS ---
This report was moved to the correct visit on 09/22/22. Original report was signed by Dara Lambert MD 09/21/22 1300. History and Physical Update Update Date/Time: 09/21/22 13:00 History and Physical has been reviewed, including an updated exam of the patient. There are NO changes in the patient's condition. Risks, benefits, and alternatives have been discussed and questions answered. Patient agrees to proceed with procedure. This report may have been done utilizing a voice recognition system. Attempts have been made to correct errors. However, there may be uncorrected grammatical, spelling, and recognition errors present. Report Initialized date/time: Dara Lambert MD 09/21/22 / 1299 Electronically signed by: Dara Lambert MD 09/21/22 1300 [facility]
--- NOTE | 2022-09-21 13:01 | MISC_ITS ---
This report was moved to the correct visit on 09/22/22. Original report was signed by Dara Lambert MD 09/21/22 6425. Moderate Sedation Note-Pt Data Patient Data Diagnosis: Cardiomyopathy Present Complaint: Cardiomyopathy Procedure to be performed/Plan: Coronary angiography, [facility], +/- PCI Allergies Allergy/AdvReac Type Severity Reaction Status Date / Time No Known Allergies Allergy Verified 09/20/22 13:01 Home Medications Medication Instructions Recorded Confirmed Type aspirin 81 mg tablet,delayed 81 mg PO QAM #30 tabs 08/29/22 09/20/22 Rx release carvedilol 12.5 mg tablet (Coreg) 12.5 mg PO Q12HR #60 tabs 08/29/22 09/20/22 Rx empagliflozin 10 mg tablet 10 mg PO DAILY #30 tabs 08/29/22 09/20/22 Rx (Jardiance) furosemide 20 mg tablet 60 mg PO BID #180 tabs 08/29/22 09/20/22 Rx potassium chloride 10 mEq 10 meq PO QPM #30 tabs 08/29/22 09/20/22 Rx tablet,extended release (K-Tab) potassium chloride 20 mEq 20 meq PO DAILY@0800 #30 tabs 08/29/22 09/20/22 Rx tablet,extended release (K-Tab) sacubitril 24 mg-valsartan 26 mg 1 tablet PO Q12HR #60 tabs 08/29/22 09/20/22 Rx tablet (Entresto) spironolactone 25 mg tablet 25 mg PO QAM #30 tabs 08/29/22 09/20/22 Rx atorvastatin 20 mg tablet 20 mg DAILY 09/20/22 09/20/22 History Sedation/Anesthesia: No previous sedation/anesthesia problems (including family history). [facility] Past Medical History Medical History Bloating Early satiety Peripheral edema SOB (shortness of breath) Family History Family History Father Acute myocardial infarction Grandparent Colon cancer Social History Social History Smoking status: Former smoker Tobacco type: cigarettes Second hand tobacco smoke exposure: No Smoking end date: 07/11/93 Alcohol intake: current Drinks per week: 2 Alcohol use details: 2 drinks or less/week Substance use: never Substance use type: does not use Lack of Transportation: No Lack of Food: Never True Current Housing: I Have Housing Concerned About Future Housing: No Difficulty Paying Gas/Electric Bills: No Difficulty Paying for Meds: No Currently Unemployed: No Education: Bachelor's Degree Difficulty w/ Childcare or Family Care: No Living arrangements: with family Occupation/Education: occupation Gender identity (if verbalized by the patient): Male Sexual Orientation (if Verbalized by the Patient): Straight or Heterosexual Spiritual care concerns: No Agree to blood products: Yes Mod Sed Physical Exam Physical Exam Pre Procedural Exam: Normal: Appearance, Lungs, Neuro Exam, Abdomen, Extremities and Skin and Variation: Heart Rhythm (Atrial fibrillation) Hours since solid foods: 12 Hours since liquid intake: 8 Mallampati Classification: class III ASA Classification/Sedation ASA Classification/Sedation ASA Class: III Emergent: No Risks: Risks, benefits and alternatives explained and patient/family accepted plan for sedation. Patient re-evaluated immediately prior to sedation. This report may have been done utilizing a voice recognition system. Attempts have been made to correct errors. However, there may be uncorrected grammatical, spelling, and recognition errors present. Report Initialized date/time: Dara Lambert MD 09/21/22 / 1301 Electronically signed by: Dara Lambert MD 09/21/22 130 [facility]
--- NOTE | 2022-09-21 13:03 | MISC_ITS ---
This report was moved to the correct visit on 09/22/22. Original report was signed by Dara Lambert MD 09/21/22 2004. ADDENDUM Given his coronary artery findings, will refer to CT Surgery for consideration of surgical revascularization. Patient and family requesting [place] [facility]. EKG pre-cath shows rate controlled atrial fibrillation. This is a new diagnosis for the patient. Given [id number] score of 2, will start Eliquis 5mg BID. 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 Tentative plan for outpatient elective cardioversion once patient has been adequately anticoagulated. Will increase his statin dose to 80mg. Will keep his Entresto dose at 24-26mg BID to avoid hypotension and allow beta effie titration if needed for his atrial fibrillation. Will arrange follow up in our clinic. Addendum Documented By: Dara Lambert MD 09/21/22 1749 Addendum Signed By: <Electronically signed by Dara Lambert MD>09/21/22 1409 Cardiac Cath Procedure Note Date of procedure:: 09/21/22 Performing physician:: CATHETERIZATION LABORATORY REPORT Procedure Date: 09/21/2022 [place]: Dara Lambert M.D., [facility]? Referring Physician: Dara Lambert M.D. ? Anesthesia: Versed and Fentanyl were ordered and given in my presence at 12:26, procedure ended at 12:56 . Supervision of nurse monitored moderate sedation with Versed and Fentanyl was provided for 30 minutes. Total of Versed 2mg and Fentanyl 50mcg were administered by the Feller Seam Operator RN Beverley Stafford. Pre-op Diagnosis: Coronary artery disease Post-op Diagnosis: Two-vessel coronary artery disease Left ventricular end-diastolic pressure of 16mmHg Procedure(s): Left heart catheterization with coronary angiography Access Site: Right radial artery Brief History and Clinical Indications: Patient is a 52-year-old male with a history of morbid obesity, history of right inguinal hernia repair, history of kidney stones, pre-diabetes with A1c of 6.1 who we saw in initial consultation in 08/2022 at [facility] for new diagnosis of heart failure. Patient was admitted with decompensated heart failure at that time. Patient started on GDMT. Referred for [facility] for ishemic evaluation given LVEF 25-30%. All risks, benefits and alternatives to left heart catheterization with or without percutaneous coronary intervention was discussed at length with the patient. Risk of complications including but not limited to bleeding, infection, arrhythmia, stroke, worsening kidney function, blood loss, groin hematoma, limb loss, emergency coronary artery bypass grafting, and even were discussed with the patient and all questions were answered. The patient understood and wished to proceed. Time out called, patient name, date of , medical record number, allergies, procedure performed, identify [place], patient and staff member concurred with accurate data, procedure carried on. Findings: LEFT HEART CATHETERIZATION FINDINGS: 1. Left main: Large caliber vessel. The left main coronary artery is widely patent without any significant obstructive disease. 2. Left anterior descending: Large caliber vessel. The proximal and mid LAD has mild diffuse disease. The mid-distal LAD has a long segment of significant disease with up to 90-95% long stenosis in the distal LAD. The diagonal branches are of small caliber and diffusely diseased. 3. Left circumflex: The left circumflex is a large caliber vessel. It is a co- dominant vessel. The LCX is ectatic with mild diffuse disease. 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
--- NOTE | 2022-09-21 16:19 | SUR.PHASEII ---
phase 2 completed at 1555. Pt wheeled down to heart care group to receive take home heart monitor. Discharge instructions went over with patient and family and pt went home via personal vehicle
== END 2022-09-21 16:00 | disposition home or self-care (01) ==
PROVIDERS: PCP Family Medicine Adolescent Medicine; Visit Provider Internal Medicine
PROC: 4A023N7 Measurement of Cardiac Sampling and Pressure, Left Heart, Percutaneous Approach (ICD-10-PCS; CPT 93452; principal; 2022-09-21 12:00)
DX: I42.9 Cardiomyopathy, unspecified (principal); I25.10 Atherosclerotic heart disease of native coronary artery without angina pectoris; R06.00 Dyspnea, unspecified; E78.5 Hyperlipidemia, unspecified; G47.33 Obstructive sleep apnea (adult) (pediatric); R60.9 Edema, unspecified; Z87.891 Personal history of nicotine dependence
CPT/HCPCS: 36415; 80048; 85025; 93005; 93458; A9270; C1769; C1887; C1894; J1644; J2250; J3010; J7040

== ENCOUNTER → 2022-12-27 08:05 | Outpatient (CLI) | payer OTHER, SELFPAY ==
--- NOTE | ~2022-12-27 | MMUS_ITS ---
EXAMINATION: MM diagnostic ruy LT w edilma, US breast LT limited HISTORY: Left breast lump TECHNIQUE: Bilateral MLO and left CC 3-D tomosynthesis images were performed and synthetic 2-D images were generated. CAD analysis was submitted and interpreted. High resolution left subareolar breast u ltrasound was performed. COMPARISON: None BREAST PARENCHYMAL COMPOSITION: The breasts are almost entirely fatty. FINDINGS: MAMMOGRAPHIC FINDINGS: There is an approximately 1.6 x 1.9 cm circumscribed mass in the lateral left subareolar area. The ma rgins are circumscribed. No suspicious mass, architectural distortion, calcification, retraction or skin thickening is noted o therwise. ULTRASOUND: There is a circumscribed irregular approximately 1.3 x 1.5 x 2 cm heterogeneous hypoechoic solid mass in the 1:00 subareolar area. No posterior shadowing is noted. The mammographic and sonographic findi ngs may be consistent with fibroadenoma; malignancy is not excluded. Ultrasound-guided biopsy is myrna mmended. IMPRESSION: 1. 2 cm circumscribed irregular subareolar left breast mass 2. Ultrasound-guided biopsy is recommended BI-RADS Category 4A: Suspicious abnormality Reviewed, dictated and finalized at location A. IMPRESSION: 1. 2 cm circumscribed irregular subareolar left breast mass 2. Ultrasound-guided biopsy is recommended BI-RADS Category 4A: Suspicious abnormality
== END ==
PROVIDERS: PCP Family Medicine Adolescent Medicine; Visit Provider Nurse Practitioner Family
DX: N63.20 Unspecified lump in the left breast, unspecified quadrant (principal); R92.8 Other abnormal and inconclusive findings on diagnostic imaging of breast
CPT/HCPCS: 76642; 77061; 77065; G0279

== ENCOUNTER 2023-01-04 00:52 | Day surgery (SDC) | payer OTHER, SELFPAY ==
[2022-12-30 12:05] VITALS: BMI 38.2
--- NOTE | 2023-01-03 13:15 | WPDANESEPPF ---
Anes - Initial Pre Proc Eval Procedure: Operation Date: 01/04/23 09:30 Proposed Procedures p Screening Colonoscopy - Kirk Tenorio MD Date/Time: 01/03/23 13:15 Surgeon: Kirk Tenorio MD Pre Op Diagnosis: neoplasm screening Patient Data Age: 52 Gender: M Height: 1.79 m Weight: 122.5 kg Allergies Allergy/AdvReac Type Severity Reaction Status Date / Time No Known Allergies Allergy Verified 01/04/23 08:16 Home Medications Medication Instructions Recorded Confirmed Type apixaban 5 mg tablet 5 mg PO BID #90 tabs 09/21/22 01/04/23 Rx atorvastatin 80 mg tablet 80 mg PO DAILY #90 tabs 09/21/22 01/04/23 Rx carvedilol 12.5 mg tablet (Coreg) 12.5 mg PO Q12HR #90 tabs 09/21/22 01/04/23 Rx empagliflozin 10 mg tablet 10 mg PO DAILY #90 tabs 09/21/22 01/04/23 Rx (Jardiance) furosemide 20 mg tablet 40 mg PO BID #180 tabs 09/21/22 01/04/23 Rx potassium chloride 10 mEq 10 meq PO QPM #30 tabs 09/21/22 01/04/23 Rx tablet,extended release (K-Tab) potassium chloride 20 mEq 20 meq PO DAILY@0800 #30 tabs 09/21/22 01/04/23 Rx tablet,extended release (K-Tab) sacubitril 24 mg-valsartan 26 mg 1 tablet PO BID #60 tabs 09/21/22 01/04/23 Rx tablet spironolactone 25 mg tablet 25 mg PO QAM #90 tabs 09/21/22 01/04/23 Rx Patient hx anesthesia problems: none Family hx anesthesia problems: none Results Review: All pre-operative results and documents have been reviewed as part of the pre-operative evaluation. [facility] Past Medical History Medical History (Updated 01/03/23 @ 13:16 by Chin Freed DO) Atrial fibrillation Bloating CAD (coronary artery disease) Cardiomyopathy EF 57% - 11/2022 EF 25-30% - 08/2022 Early satiety Peripheral edema SOB (shortness of breath) Family History Family History Father Acute myocardial infarction Grandparent Colon cancer Social History Social History Years smoked: 6 Smoking status: Former smoker Tobacco type: cigarettes Second hand tobacco smoke exposure: No Smoking end date: 07/11/93 Alcohol intake: current Drinks per week: 2 Alcohol use details: 2 drinks or less/week Substance use: never Substance use type: does not use Lack of Transportation: No Lack of Food: Never True Current Housing: I Have Housing Concerned About Future Housing: No Difficulty Paying Gas/Electric Bills: No Difficulty Paying for Meds: No Currently Unemployed: No Education: Bachelor's Degree Difficulty w/ Childcare or Family Care: No Living arrangements: with family Occupation/Education: occupation Gender identity (if verbalized by the patient): Male Sexual Orientation (if Verbalized by the Patient): Straight or Heterosexual Spiritual care concerns: No Agree to blood products: Yes Anes - Eval Final PreProcedure Day of Procedure 01/03/23 13:15 Patient weight: obese Heart: regular rate and rhythm Lungs: clear to auscultation Airway: Mallampati scale class II Neurological: alert and oriented Last oral intake: >/= 8 hours ASA classification: III Emergent: no Anesthetic plan: proceed Anesthesia type and monitoring: general GIVS and standard monitoring Results Review: All pre-operative results and documents have been reviewed as part of the pre-operative evaluation. Informed Consent: The patient's anesthetic plan and its attendant risks and benefits were discussed with the patient/family/POA. Questions were solicited and answers provided to the satisfaction of the patient/family/POA.
[2023-01-04 08:12] VITALS: BP 144/97; PULSE 94; RESP 18; TEMP 36.5; O2SAT 97; BMI 38.2
[2023-01-04] MEDS: LACTATED RINGERS 1,000 ML 150 ML IV CONT (08:30)
[2023-01-04 08:31] LABS: Glucose Point of Care 111 mg/dl (65-105)
--- NOTE | 2023-01-04 09:37 | PM.HPGS ---
History of Present Illness History of Present Illness Consent: Risks, benefits, and alternatives have been discussed and questions answered. Patient agrees to proceed with procedure. Chief complaint: neoplasm screening Narrative: Hieu Obrien is a 52 year old male here for first screening colonoscopy Review of Systems Constitutional: Constitutional: Denies headache(s) and Denies weakness Eyes: Eyes: Denies blurry vision ENT: Reports Normal hearing present, Denies headache(s) and Denies neck pain Cardiovascular: Cardiovascular: Denies chest pain and Denies dyspnea Respiratory: Respiratory: Denies dyspnea Gastrointestinal: Gastrointestinal: Reports no additional gastrointestinal complaints Genitourinary: Genitourinary: Denies dysuria Musculoskeletal: Musculoskeletal: Denies neck pain Integumentary/Breasts: Skin/Breast: Denies dry skin Neurologic: Reports Normal hearing present, Denies headache(s) and Denies weakness Psychiatric: Psychiatric: Denies anxiety Endocrine: Endocrine: Denies change in body appearance Hematologic/Lymphatic: Hematologic/Lymphatic: Denies easy bleeding Allergic/Immunologic: Allergic/Immunologic: Denies urticaria [facility] Past Medical History Medical History (Updated 01/03/23 @ 13:16 by Chin Freed DO) Atrial fibrillation Bloating CAD (coronary artery disease) Cardiomyopathy EF 57% - 11/2022 EF 25-30% - 08/2022 Early satiety Peripheral edema SOB (shortness of breath) Family History Family History Father Acute myocardial infarction Grandparent Colon cancer Social History Social History Years smoked: 6 Smoking status: Former smoker Tobacco type: cigarettes Second hand tobacco smoke exposure: No Smoking end date: 07/11/93 Alcohol intake: current Drinks per week: 2 Alcohol use details: 2 drinks or less/week Substance use: never Substance use type: does not use Lack of Transportation: No Lack of Food: Never True Current Housing: I Have Housing Concerned About Future Housing: No Difficulty Paying Gas/Electric Bills: No Difficulty Paying for Meds: No Currently Unemployed: No Education: Bachelor's Degree Difficulty w/ Childcare or Family Care: No Living arrangements: with family Occupation/Education: occupation Gender identity (if verbalized by the patient): Male Sexual Orientation (if Verbalized by the Patient): Straight or Heterosexual Spiritual care concerns: No Agree to blood products: Yes Meds Home Medications and Allergies Home Medications Medication Instructions Recorded Confirmed Type apixaban 5 mg tablet 5 mg PO BID #90 tabs 09/21/22 01/04/23 Rx atorvastatin 80 mg tablet 80 mg PO DAILY #90 tabs 09/21/22 01/04/23 Rx carvedilol 12.5 mg tablet (Coreg) 12.5 mg PO Q12HR #90 tabs 09/21/22 01/04/23 Rx empagliflozin 10 mg tablet 10 mg PO DAILY #90 tabs 09/21/22 01/04/23 Rx (Jardiance) furosemide 20 mg tablet 40 mg PO BID #180 tabs 09/21/22 01/04/23 Rx potassium chloride 10 mEq 10 meq PO QPM #30 tabs 09/21/22 01/04/23 Rx tablet,extended release (K-Tab) potassium chloride 20 mEq 20 meq PO DAILY@0800 #30 tabs 09/21/22 01/04/23 Rx tablet,extended release (K-Tab) sacubitril 24 mg-valsartan 26 mg 1 tablet PO BID #60 tabs 09/21/22 01/04/23 Rx tablet spironolactone 25 mg tablet 25 mg PO QAM #90 tabs 09/21/22 01/04/23 Rx Allergies Allergy/AdvReac Type Severity Reaction Status Date / Time No Known Allergies Allergy Verified 01/04/23 08:16 Vital Signs Vital Signs - 24 hr 01/04/23 08:12 Temperature 97.7 F Pulse Rate 94 Respiratory Rate 18 Blood Pressure 144/97 H Pulse Oximetry 97 Oxygen Delivery Room Air Exam Const: General: comfortable and no acute distress HENMT: Face/Nose/Sinus: Normal nares present Eyes: General: appearance normal, both eyes an
[2023-01-04 10:06] VITALS: BP 98/71; PULSE 75; RESP 16; O2SAT 95
[2023-01-04 10:16] VITALS: BP 127/91; PULSE 68; RESP 20; O2SAT 98
[2023-01-04 10:26] VITALS: BP 143/97; PULSE 60; RESP 18; O2SAT 99
== END 2023-01-04 10:35 | disposition home or self-care (01) ==
PROVIDERS: PCP Family Medicine Adolescent Medicine; Visit Provider Internal Medicine Gastroenterology
PROC: 0DJD8ZZ Inspection of Lower Intestinal Tract, Via Natural or Artificial Opening Endoscopic (ICD-10-PCS; CPT 45378; principal; 2023-01-04 09:30)
DX: Z12.11 Encounter for screening for malignant neoplasm of colon (principal); D12.3 Benign neoplasm of transverse colon; K63.5 Polyp of colon; K57.30 Diverticulosis of large intestine without perforation or abscess without bleeding; K64.8 Other hemorrhoids; I48.91 Unspecified atrial fibrillation; I25.10 Atherosclerotic heart disease of native coronary artery without angina pectoris; I42.9 Cardiomyopathy, unspecified; Z87.891 Personal history of nicotine dependence; E66.9 Obesity, unspecified; Z68.38 Body mass index [BMI] 38.0-38.9, adult; Z79.01 Long term (current) use of anticoagulants; Z79.84 Long term (current) use of oral hypoglycemic drugs
CPT/HCPCS: 45380; 45385; 82948; 88305; J2704; J7120

== ENCOUNTER 2023-03-11 09:04 | Outpatient (CLI) | payer OTHER, SELFPAY ==
--- NOTE | ~2023-03-11 | MMUS_ITS ---
EXAMINATION: US breast biopsy LT w image, MM post biopsy invasive LT DATE: 03/11/2023 10:49 (accession [id number]), 03/11/2023 10:33 (accession [id number]) INDICATION: Indeterminate mass of the subareolar left breast. Ultrasound-guided core biopsy is reques loyd to evaluate for malignancy. TECHNIQUE AND FINDINGS: The risks and potential benefits of the procedure were discussed with the patient including bleeding and infection. A time out was performed. The skin of the left breast was prepared and draped in usual sterile fashion. 1% lidocaine was used for superficial anesthesia. 1% lidocaine with epinephrine was used for deep anesthesia. A vacuum-assisted biopsy needle was advanced through to the outer edge of the region of interest from a lateral approach utilizing sonographic guidance. A total of five tissue core samples were obtained through the lesion. A tissue marker clip was then placed at the biopsy site. Hemostasis was achieved . A sterile bandage was applied. The patient tolerated procedure well and there was no evidence of immediate complication. The patient was given verbal instructions to return to the Emergency Department in the event of severe breast pa in or rapid breast enlargement. A two view left breast mammogram was obtained to document tissue aj er clip placement. IMPRESSION: 1. Successful ultrasound-guided vacuum-assisted biopsy of left breast mass with tissue marker placeme nt. Reviewed, dictated and finalized at location B. IMPRESSION: 1. Successful ultrasound-guided vacuum-assisted biopsy of left breast mass with tissue marker placement.
== END 2023-03-11 09:05 | disposition home or self-care (01) ==
LOC: ANHIMG 09:04
PROVIDERS: PCP Family Medicine Adolescent Medicine; Visit Provider Nurse Practitioner Family
DX: N63.20 Unspecified lump in the left breast, unspecified quadrant (principal)
CPT/HCPCS: 19083; 88305; 88342; 88360; A4648

== ENCOUNTER → 2023-03-23 09:54 | Outpatient (CLI) | payer OTHER, SELFPAY ==
--- NOTE | ~2023-03-23 | US_ITS ---
US axilla LT DATE: 03/23/2023 10:16 INDICATION: Invasive ductal carcinoma of left breast TECHNIQUE: Real-time imaging of left axillary soft tissues COMPARISON: 12/28/2019 diagnostic left mammogram and left breast ultrasound examination FINDINGS: An approximately 5 x 10 mm small normal-appearing lymph node with uniform thickness and ech ogenicity of the cortex is noted. No suspicious left axillary mass or shadowing is noted. IMPRESSION: No left axillary lymphadenopathy noted BI-RADS Category 6: Known left breast malignancy Reviewed, dictated and finalized at Location A. Reviewed, dictated and finalized at location A.
== END ==
PROVIDERS: PCP Physician Assistant Surgical; Visit Provider Physician Assistant Surgical
DX: C50.922 Malignant neoplasm of unspecified site of left male breast (principal)
CPT/HCPCS: 76882

== ENCOUNTER 2023-03-25 16:07 | Outpatient (CLI) | payer OTHER, SELFPAY ==
[2023-03-25 16:41] LABS: Basophils Percent Auto 0.5 % (0.2-1.2); Eosinophils Absolute Auto 0.3 K/mm3 (0-0.3); Eosinophils Percent Auto 3.2 % (0-4.4); Hematocrit 47.1 % (42.0-52.0); Hemoglobin 16.2 g/dL (14.0-18.0); Immature Granulocyte Absolute 0.01 K/mm3 (0.00-0.031); Immature Granulocyte Percent A 0.1 % (0-0.5); Lymphocytes Absolute Auto 2.94 K/mm3 (0.9-3.2); Lymphocytes Percent Auto 37.3 % (18.3-44.2); Mean Corpuscular HGB Conc 34.4 g/dl (32-36); Mean Corpuscular Hemoglobin 30.6 pg (26-34); Mean Corpuscular Volume 88.9 fl (80-100); Mean Platelet Volume 9.5 fl (7.4-10.4); Monocytes Absolute Auto 0.9 K/mm3 (0.1-0.6); Neutrophils Absolute Auto 3.8 K/mm3 (1.3-6.7); Neutrophils Percent Auto 47.9 % (45.5-73.1); Platelet Count Result 232 k/mm3 (150-375); Red Cell Distribution Width 12.6 % (11.5-14.5); White Blood Count 7.9 K/mm3 (4.5-10.0)
[2023-03-25 16:49] LABS: Alanine Aminotransferase 36 U/L (6-50); Albumin Level 4.4 g/dL (3.5-5.1); Alkaline Phosphatase 59 U/L (38-126); Anion Gap 6 mmol/L (8-16); Aspartate Amino Transferase 49 U/L (17-59); Bilirubin,Total 1.1 mg/dL (0.2-1.3); Blood Urea Nitrogen 21 mg/dL (9-20); Calcium 9.2 mg/dL (8.4-10.2); Carbon Dioxide 29 mmol/L (22-30); Chloride 101 mmol/L (98-107); Estimated Glomerular Filt Rate > 60; Glucose 101 mg/dL (65-110); Potassium 3.9 mmol/L (3.4-5.0); Sodium 136 mmol/L (137-145)
[2023-03-30 14:01] LABS: CA 15-3 14 U/mL (<32)
== END 2023-03-25 16:08 | disposition home or self-care (01) ==
LOC: ANHLAB 16:10
PROVIDERS: PCP Physician Assistant Surgical; Visit Provider Internal Medicine Hematology & Oncology
DX: C50.222 Malignant neoplasm of upper-inner quadrant of left male breast (principal); Z17.0 Estrogen receptor positive status [ER+]
CPT/HCPCS: 36415; 80053; 85025; 86300

== ENCOUNTER 2023-04-18 08:14 | Outpatient (CLI) | payer OTHER, SELFPAY | END 2023-04-18 08:15 | disposition home or self-care (01) | LOC: ANHSURGERY 08:19 | PROVIDERS: PCP Family Medicine Adolescent Medicine; Visit Provider Surgery | DX: Z01.818 Encounter for other preprocedural examination (principal); C50.922 Malignant neoplasm of unspecified site of left male breast | CPT/HCPCS: 36415; 86850; 86900; 86901 ==

== ENCOUNTER 2023-04-20 16:49 | Observation (INO) | payer OTHER, SELFPAY ==
[2023-04-08 12:55] VITALS: BMI 38.9
--- NOTE | 2023-04-08 13:00 | PC.NURSE ---
Report to the Outpatient Waiting Room, entrance under the green pavilion located off [facility], at time 9:00 on date 04/20/23. Planned Procedure Time: 11:00. Time changes happen often and if your time is changed the preop area will call you the afternoon before. - You and your visitor will be asked to self-screen and do not enter if you have any COVID symptoms. - A mask is optional within the hospital at this time. Patients may have clear liquids (water, carbonated beverages, clear teas, apple juice) until 3 hours prior to surgery (8:00) with a maximum of 20 ounces. - No food from midnight until time of surgery Take the following medications with a SIP of water the morning of surgery: CARVEDILOL DO NOT STOP ANY OF YOUR OTHER PRESCRIPTION MEDICATIONS PRIOR TO SURGERY ?EXCEPT THE FOLLOWING Medications to discontinue per physician: ELIQUIS AND ASPIRIN Date to take last dose: CHECK WITH DR. ALVARADO Please no make-up, nail [place] islander, hairspray, perfume, deodorant, or body powder the day of surgery. No jewelry (including any body piercings) or valuables the day of surgery, leave them at home. Please take a shower or bath the night before, or the morning of, surgery with an antibacterial soap. Wear comfortable, loose fitting clothing. - Jewelry must be removed prior to entering the operating room. Rings and piercings that are not removed may be cut off. - The hospital will not accept responsibility for valuables. - Please leave all valuables, including medications, at home the day of surgery. If you are going home after surgery, a licensed pick up truck driver must drive you home. - NO public transportation without another adult if you receive anesthesia. - We recommend that an adult stay with you for 24 hours following discharge. - We also recommend that you do not drive, make important decision, drink alcoholic beverages, or take any drugs that were not prescribed by your health care provider for at least 24 hours after your discharge time. Follow any additional instructions given to you from your surgeon. If you or anyone in your household have experienced Covid symptoms in the past week, please notify your surgeon or the nurse liaison at the phone number below for possible testing. Telephone instructions given to PT - GUANAKO MEMBRENO and asked if any additional questions and then verbalized understanding. Patient advised to call surgeon office or pre surgery nurse liaison [phone] if any additional questions.
[2023-04-20] VITALS (13 sets, daily range): BP systolic 127–171; BP diastolic 84–121; PULSE 65–118; RESP 12–93; TEMP 36.2–36.8; O2SAT 93–97
--- NOTE | ~2023-04-20 | NM_ITS ---
NM sentinel node inject only 04/21/2023 16:56 CDT INDICATION: Left breast cancer TECHNIQUE: 1 Millicuries Tc 99m filtered sulfur colloid was injected by Dr. Sutherland with 4 aliquots in t he anterior upper outer quadrant of the breast near the areola. No images were obtained. IMPRESSION: 1: Status post left breast sentinel lymph node radiopharmaceutical injection. Procedure performed by Dr. Sutherland. Reviewed, dictated and finalized at location A.
[2023-04-20] MEDS: ACETAMINOPHEN 500 MG TABLET 1000 MG PO (08:46)
[2023-04-20] MEDS: LACTATED RINGERS 1,000 ML 30 ML IV CONT ×2 (09:00→15:23)
[2023-04-20 09:10] LABS: Glucose Point of Care 123 mg/dl (65-105)
--- NOTE | 2023-04-20 09:50 | WPDHPUPDATE1 ---
History and Physical Update Update Date/Time: 04/20/23 09:50 History and Physical has been reviewed, including an updated exam of the patient. There are NO changes in the patient's condition. Risks, benefits, and alternatives have been discussed and questions answered. Patient agrees to proceed with procedure.
--- NOTE | 2023-04-20 10:03 | WPDANESEPPF ---
Anes - Initial Pre Proc Eval Procedure: Operation Date: 04/20/23 10:00 Proposed Procedures p Left Total Mastectomy, Right Prophylactic Mastectomy, Left [place] Lymph Node Injection and Biopsy - Cheryle Jeffrey MD Date/Time: 04/20/23 10:03 Surgeon: Cheryle Jeffrey MD Pre Op Diagnosis: left breast CA Patient Data Age: 53 Gender: M Height: 1.79 m Weight: 130.6 kg Last Vital Signs Temp 36.4 C L 04/20/23 09:25 Pulse 65 04/20/23 09:25 Resp 16 04/20/23 09:25 BP 127/84 04/20/23 09:25 Pulse Ox 94 04/20/23 09:25 O2 Del Method Room Air 04/20/23 09:25 Allergies Allergy/AdvReac Type Severity Reaction Status Date / Time No Known Allergies Allergy Verified 04/20/23 08:27 Home Medications Medication Instructions Recorded Confirmed Type apixaban 5 mg tablet 5 mg PO BID #90 tabs 09/21/22 04/20/23 Rx atorvastatin 80 mg tablet 80 mg PO DAILY #90 tabs 09/21/22 04/20/23 Rx carvedilol 12.5 mg tablet (Coreg) 12.5 mg PO Q12HR #90 tabs 09/21/22 04/20/23 Rx empagliflozin 10 mg tablet 10 mg PO DAILY #90 tabs 09/21/22 04/20/23 Rx (Jardiance) furosemide 20 mg tablet 40 mg PO BID #180 tabs 09/21/22 04/20/23 Rx potassium chloride 10 mEq 10 meq PO QPM #30 tabs 09/21/22 04/20/23 Rx tablet,extended release (K-Tab) potassium chloride 20 mEq 20 meq PO DAILY@0800 #30 tabs 09/21/22 04/20/23 Rx tablet,extended release (K-Tab) sacubitril 24 mg-valsartan 26 mg 1 tablet PO BID #60 tabs 09/21/22 04/08/23 Rx tablet spironolactone 25 mg tablet 25 mg PO QAM #90 tabs 09/21/22 04/20/23 Rx aspirin 81 mg tablet,delayed 81 mg PO DAILY 03/17/23 04/20/23 History release (Adult Low Dose Aspirin) Laboratory Tests 04/20/23 09:07 POC Capillary Glucose 123 H mg/dl (65-105) Patient hx anesthesia problems: none Family hx anesthesia problems: none Results Review: All pre-operative results and documents have been reviewed as part of the pre-operative evaluation. [facility] Past Medical History Medical History Atrial fibrillation Bloating CAD (coronary artery disease) Cardiomyopathy EF 57% - 11/2022 EF 25-30% - 08/2022 Early satiety Peripheral edema SOB (shortness of breath) Family History Family History Father Acute myocardial infarction Grandparent Colon cancer Social History Social History Smoking packs per day: 1.5 Smoking cigarettes per day: 30.0 Years smoked: 10 Smoking pack-years: 15.00 Smoking status: Former smoker Tobacco type: cigarettes Second hand tobacco smoke exposure: No Smoking end date: 07/11/02 Alcohol intake: current Drinks per week: 2 Alcohol use details: 2/MONTH Substance use: never Substance use type: does not use Lack of Transportation: No Lack of Food: Never True Current Housing: I Have Housing Concerned About Future Housing: No Difficulty Paying Gas/Electric Bills: No Difficulty Paying for Meds: No Currently Unemployed: No Education: Bachelor's Degree Difficulty w/ Childcare or Family Care: No Living arrangements: with family Occupation/Education: occupation Gender identity (if verbalized by the patient): Male Sexual Orientation (if Verbalized by the Patient): Straight or Heterosexual Spiritual care concerns: No Agree to blood products: Yes Anes - Eval Final PreProcedure Day of Procedure 04/20/23 10:03 Patient weight: morbidly obese Heart: regular rate and rhythm Lungs: clear to auscultation Airway: Mallampati scale class III Neurological: alert and oriented Last oral intake: >/= 8 hours ASA classification: III Emergent: no Anesthetic plan: proceed Anesthesia type and monitoring: general ETT and standard monitoring Results Review: All pre-operative results and documents have been reviewed as part of the pre-operative ev
[2023-04-20] MEDS: ceFAZolin SODIUM 1 GM VIAL 3 GM IV PUSH (11:01)
[2023-04-20] MEDS: BUPIVACAINE/EPINEPHRINE 0.5% 50 ML VIAL 30 ML INFILTRATE (11:41)
[2023-04-20] MEDS: METHYLENE BLUE 0.5% INJ 10 ML AMPULE XX (11:42)
--- NOTE | 2023-04-20 12:40 | SUR.OPER ---
Specimen sent with JILL Villaseñor and received in pathology by Oli
[2023-04-20] MEDS: BACITRACIN OINTMENT 15 GM TUBE 1 APPLIC TOPICAL (13:17)
--- NOTE | 2023-04-20 13:51 | SUR.OPER ---
Specimen sent with JILL Villaseñor and received in pathology by Harper
[2023-04-20] MEDS: HEMOSTATIC MATRIX (SURGIFLO with THROMBIN) KIT 1 KIT XX (14:28)
--- NOTE | 2023-04-20 15:28 | W.PM.PROC2 ---
Procedure Note - Detailed Date of Procedure 04/20/23 Pre-op Diagnosis Left breast invasive ductal carcinoma Post-op Diagnosis Same Procedure Performed Left total mastectomy non nipple sparing, complex closure with adjacent tissue transfer (24cm x 8cm) Right prophylactic mastectomy non nipple sparing, complex closure with adjacent tissue transfer (24.5cm x 8 cm) Left sentinel lymph node biopsy with lymphoseek and methylene blue dye Intraoperative injection of methylene blue dye for sentinel lymph node identification (as dual tracer) Surgeon Cheryle Jeffrey MD [employer] Ninfa New PA-C Anesthesia General Indications 53 year old male with left breast invasive ductal carcinoma ER/SC positive, HER2/Crys negative, low KI67 of 2% who presents for pre-operative visit. ? I discussed again surgical options with the patient which included left total mastectomy versus left lumpectomy with resection of the nipple areola complex given the subareolar location of the tumor.? Also discussed with the patient the options for contralateral surgery, more for an aesthetic? purpose if he so desired.? Also talked to the patient about the sentinel lymph node biopsy which would be done at the same time of the breast surgery for staging of the axilla. Risks of surgery? were also discussed with the patient which included but not limited to risk of bleeding, infection, asymmetry, recurrence, positive margins, possible need for additional procedures in the future including revision, wound healing problems, scar, pain, as well as the risk of anesthesia.? All questions were answered patient agreed to proceed.? Description of Procedure Patient was identified in the preoperative holding area brought to the operating room suite.? He underwent Lymphoseek injection nuclear Medicine prior to presentation to the preoperative area. He was placed supine operating table sequential compression devices were applied. General anesthesia was induced without difficulty.? Bilateral chest and left axillary areas were prepped draped in sterile fashion.? Decision was made to start with the right prophylactic side.? An elliptical incision encompassing the nipple areolar complex was made and dissection was carried down through the subcutaneous tissue and continued through the thin areolar tissue plane between the subcutaneous tissue with the breast tissue superiorly to the inferior border of the clavicle.? We then continued our dissection medially to the lateral aspect of the sternum, inferiorly to the inframammary fold and laterally to latissimus.? Once this was performed the breast tissue along with the pectoralis fascia was dissected off the pectoralis muscle posteriorly.? The mastectomy specimen was then marked short stitch superior long stitch lateral stitch lateral for orientation.? The specimen was then sent to pathology as a fresh specimen.? Hemostasis was assured.? Attention was then turned to the left axilla. The gamma probe was used to find the area of highest radio activity in the left axilla, and an incision was made overlying this area that was incorporated into the mastectomy incision. Dissection was carried down through the subcutaneous tissue and the clavipectoral fascia was incised. I was able to identify a node that was hot and blue. This was gently grasped and excised using the LigaSure device. The gamma probe was used to obtain account which was approximately 375. This was sent to pathology as a permanent specimen. The gamma probe was again used to scan the axilla trying to identify another node that was at least 10% of the original sentinel lymph node count. No other node was found and the axilla was irrigated and hemostasis was assured. The clavipectoral fascia was approximated with a running 3-0 Vicryl. An elliptical incision was again made around the left nipple areola area, and care was taken to ensure the future mastectomy specimen encompassed not only the NAC area but also the subareol
[2023-04-20 17:23] LABS: Glucose Point of Care 136 mg/dl (65-105)
--- NOTE | 2023-04-20 17:27 | ADMGEN ---
This patient, Hieu Obrien, was admitted to 3 [facility] S[facility] Room 325-01. Patient/family oriented to hospital policies and general routines including ID bracelet, bed and alarms, visiting hours, pain management, procedures, bathroom and other care routines, personal items, smoking policy, room service/diet, and visiting hours. Information on how to activate the Rapid Response Team has been discussed. Patient/Family are encouraged to report perceived risks to care and to ask questions if they do not understand what they are told or what they should do.
[2023-04-20] MEDS: FUROSEMIDE 40 MG TABLET PO (17:56)
[2023-04-20] MEDS: POTASSIUM CHLORIDE 10 MEQ ER TABLET PO (17:57)
[2023-04-20] MEDS: SACUBITRIL/VALSARTAN 24-26 MG TABLET 1 TAB PO (17:57)
[2023-04-20] MEDS: DOCUSATE SODIUM 100 MG CAPSULE PO (17:57)
--- NOTE | 2023-04-20 18:42 | PC.NURSE ---
Addendum entered by Sherron Bradford RN 04/20/23 19:53: Pt will continue to be monitored for any changes in status. Original Note: Pt A&O4 male who participates and contributes in plan of care. Pt denies pain at this time. Pt has bilateral YESSI drains. Drains were emptied. Left drain put out 30 mL and Right drain put out 10 mL. Pt expresses no needs at this time. Pt
[2023-04-20] MEDS: HYDROcodone/acetaminophen (*CRX) 5-325 MG TABLET 1 TAB PO (20:55)
[2023-04-20] MEDS: carvediloL 12.5 MG TABLET PO (20:56)
[2023-04-21] VITALS: PULSE 95
[2023-04-21 00:30] VITALS: BP 120/76; PULSE 103; RESP 16; TEMP 36.4; O2SAT 95
[2023-04-21 04:00] VITALS: PULSE 81
[2023-04-21 04:50] VITALS: BP 127/96; PULSE 93; RESP 18; TEMP 36.6; O2SAT 94
[2023-04-21] MEDS: HYDROcodone/acetaminophen (*CRX) 5-325 MG TABLET 1 TAB PO (05:06)
--- NOTE | 2023-04-21 05:36 | PC.NURSE ---
Pt has had a total of 35 ml out of left YESSI drain. Pt has had a total of 12.5 ml out of right YESSI drain this shift.
[2023-04-21 08:00] VITALS: PULSE 88
[2023-04-21 08:16] VITALS: PULSE 88
[2023-04-21] MEDS: carvediloL 12.5 MG TABLET PO (08:16)
[2023-04-21] MEDS: SACUBITRIL/VALSARTAN 24-26 MG TABLET 1 TAB PO (08:17)
[2023-04-21] MEDS: POTASSIUM CHLORIDE 20 MEQ ER TABLET PO (08:17)
[2023-04-21] MEDS: DOCUSATE SODIUM 100 MG CAPSULE PO (08:17)
[2023-04-21] MEDS: ATORVASTATIN 40 MG TABLET 80 MG PO (08:17)
[2023-04-21] MEDS: SPIRONOLACTONE 25 MG TABLET PO (08:17)
[2023-04-21] MEDS: FUROSEMIDE 40 MG TABLET PO (08:17)
[2023-04-21] MEDS: EMPAGLIFLOZIN 10 MG TABLET PO (08:17)
--- NOTE | 2023-04-21 08:22 | WPDPN ---
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 Reviewed procedure, expectations, dressing/activity instructions, and signs/symptoms of concern. Plan 1) dc home 2) norco q6 prn pain if not controlled with OTC tylenol 3) drain care q12 4) follow up in office in 1 week Subjective Date/time seen: 04/21/23 08:22 Interval history: Pt seen at bedside with Dr. Jeffrey. No concerns overnight, pain well managed. Ambulating and voiding without issue. Tolerating PO diet. Denies ROBERT, fever/chills, bleeding/redness, change in chest/breast size, SOB, deep chest pain, N/V/D, BLE pain. Feels ready to be discharged home. Exam Const: General: cooperative and comfortable Orientation/consciousness: patient oriented x3 HENMT: Head: normal to inspection Eyes: Sclera: sclerae normal Chest: Other: Chest binder c/d/i. Bilateral breast and NAC absent. Bilateral IMF incisions thin, flat, healing well with dermabond in place. No erythema/ecchymosis. Minimal edema bilateral chest, moderate tenderness bilateral anterior chest. Drain sites c/d/i, moderate sanguinous drainage in bulb, maintaining suction. Resp: Effort & Inspection: normal respiratory effort Cardio: Rate: regular rate Rhythm: regular rhythm Objective Data Vital Signs Vital Signs: Vital Signs - 24 hr 04/20/23 09:25 04/20/23 15:23 04/20/23 15:30 Temperature 36.4 C L 36.8 C Pulse Rate 65 89 87 Respiratory Rate 16 19 18 Blood Pressure 127/84 171/121 H 141/98 H Pulse Oximetry 94 97 96 Oxygen Delivery Room Air Simple Face Mask Simple Face Mask Oxygen Flow Rate 10 10 04/20/23 15:45 04/20/23 16:00 04/20/23 16:15 Temperature Pulse Rate 91 87 79 Respiratory Rate 12 15 13 Blood Pressure 151/92 H 151/94 H 140/90 Pulse Oximetry 96 96 96 Oxygen Delivery Room Air Nasal Cannula Nasal Cannula Oxygen Flow Rate 2 2 04/20/23 16:30 04/20/23 16:45 04/20/23 17:04 Temperature 36.2 C L Pulse Rate 80 86 89 Respiratory Rate 13 13 16 Blood Pressure 156/91 H 146/96 H 142/95 H Pulse Oximetry 94 97 97 Oxygen Delivery Nasal Cannula Nasal Cannula Oxygen Flow Rate 2 2 04/20/23 17:34 04/20/23 19:43 04/20/23 21:37 Temperature 36.4 C 36.6 C Pulse Rate 98 118 H Respiratory Rate 16 93 H Blood Pressure 146/100 H 133/85 Pulse Oximetry 97 93 93 Oxygen Delivery Nasal Cannula Oxygen Flow Rate 2 04/20/23 20:00 04/21/23 00:30 04/21/23 00:00 Temperature 36.4 C L Pulse Rate 116 H 103 H 95 Respiratory Rate 16 Blood Pressure 120/76 Pulse Oximetry 95 Oxygen Delivery Oxygen Flow Rate 04/21/23 04:00 04/21/23 04:50 04/21/23 08:16 Temperature 36.6 C Pulse Rate 81 93 88 Respiratory Rate 18 Blood Pressure 127/96 H Pulse Oximetry 94 Oxygen Delivery Oxygen Flow Rate Intake/Output Intake/Output: Intake & Output 04/18/23 04/19/23 04/20/23 04/21/23 23:59 23:59 23:59 23:59 Intake Total 340 Output Total 47 Balance 340 -47 Meds/Results Medications: Active Medications Generic Name Dose Route Start Last Admin Trade Name Freq PRN Reason Stop Dose Admin Acetaminophen 500 mg 04/20/23 16:49 Acetaminophen 500 Mg Tablet PO Q6H PRN Mild Pain (1-3) or Fever Hydrocodone Bitart/Acetaminophen 1 tab 04/20/23 16:49 04/21/23 05:06 Hydrocodone/Acetaminophen (*Crx) 5-325 Mg Tablet PO 1 tab Q4H PRN Administration Pain Rated 4-6 Atorvastatin Calcium 80 mg 04/21/23 09:00 04/21/23 08:17 Atorvastatin 40 Mg Tablet PO 80 mg DAILY RADHAMES Administration Carvedilol 12.5 mg 04/20/23 21:00 04/21/23 08:16 Carvedilol 12.5 Mg Tablet PO 12.5 mg
--- NOTE | 2023-04-21 10:13 | WPDANESPN ---
Anes - Prog Note Post-Op Date/Time: 04/21/23 10:13 Cardiovascular status: normal Respiratory status: normal Airway patency: baseline Mental status: baseline Post-Op hydration status: normal Vital Signs: Last Vital Signs Temp 97.9 F 04/21/23 04:50 Pulse 88 04/21/23 08:16 Resp 18 04/21/23 04:50 BP 127/96 H 04/21/23 04:50 Pulse Ox 94 04/21/23 04:50 O2 Del Method Room Air 04/21/23 08:00 O2 Flow Rate 2 04/20/23 21:37 Pain Score (VAS): 0/10 I/O: Intake & Output 04/20/23 04/21/23 04/21/23 23:59 07:59 15:59 Intake Total 340 120 Output Total 47 Balance 340 -47 120 04/20/23 15:33 POC Capillary Glucose 136 H Post-procedural complaints: none Patient Feedback: Patient satisfied with anesthetic care.
== END 2023-04-21 11:00 | disposition home or self-care (01) ==
LOC: ANH3MEDSUR 16:51
PROVIDERS: Admitting Provider Surgery; PCP Family Medicine Adolescent Medicine; Visit Provider Surgery
PROC: (CPT 19303; principal; 2023-04-20 10:00)
DX: C50.922 Malignant neoplasm of unspecified site of left male breast (principal); Z17.0 Estrogen receptor positive status [ER+]; I48.91 Unspecified atrial fibrillation; I25.10 Atherosclerotic heart disease of native coronary artery without angina pectoris; R60.0 Localized edema; R06.02 Shortness of breath; I42.9 Cardiomyopathy, unspecified; E66.01 Morbid (severe) obesity due to excess calories; Z68.41 Body mass index [BMI] 40.0-44.9, adult; R68.81 Early satiety; F10.90 Alcohol use, unspecified, uncomplicated; Z87.891 Personal history of nicotine dependence; Z79.01 Long term (current) use of anticoagulants; Z79.82 Long term (current) use of aspirin; Z79.84 Long term (current) use of oral hypoglycemic drugs; Z79.899 Other long term (current) drug therapy
CPT/HCPCS: 19303; 38525; 14301; 36415; 38792; 82948; 86850; 86900; 86901; 88305; 88307; 99024; A9270; A9520; G0378; G0379; J0690; J1100; J1170; J2250; J2405; J2704; J3010; J7120; Q9968

== ENCOUNTER 2023-07-08 11:53 | Outpatient (CLI) | payer OTHER, SELFPAY ==
[2023-07-08 12:07] LABS: Basophils Percent Auto 0.5 % (0.2-1.2); Eosinophils Absolute Auto 0.2 K/mm3 (0-0.3); Hematocrit 45.8 % (42.0-52.0); Hemoglobin 15.5 g/dL (14.0-18.0); Immature Granulocyte Absolute 0.02 K/mm3 (0.00-0.031); Immature Granulocyte Percent A 0.3 % (0-0.5); Mean Corpuscular HGB Conc 33.8 g/dl (32-36); Mean Corpuscular Hemoglobin 30.2 pg (26-34); Mean Corpuscular Volume 89.3 fl (80-100); Mean Platelet Volume 9.4 fl (7.4-10.4); Monocytes Absolute Auto 0.8 K/mm3 (0.1-0.6); Monocytes Percent Auto 10.5 % (2.6-8.5); Neutrophils Absolute Auto 3.9 K/mm3 (1.3-6.7); Neutrophils Percent Auto 50.7 % (45.5-73.1); Platelet Count Result 202 k/mm3 (150-375); Red Blood Count 5.13 M/mm3 (4.6-6.20); Red Cell Distribution Width 13.3 % (11.5-14.5); White Blood Count 7.7 K/mm3 (4.5-10.0)
[2023-07-08 12:12] LABS: Blood Urea Nitrogen 14 mg/dL (8-26); Carbon Dioxide 27 mmol/L (22-30); Chloride 101 mmol/L (98-109); Estimated Glomerular Filt Rate > 60; Glucose 110 mg/dL (70-105); Ionized Calcium (POC) 1.17 mmol/L (1.11-1.31); Potassium 4.3 mmol/L (3.5-4.9); Sodium 141 mmol/L (138-146)
[2023-07-08 16:34] LABS: Alanine Aminotransferase 37 U/L (6-50); Albumin Level 3.8 g/dL (3.5-5.1); Alkaline Phosphatase 52 U/L (38-126); Anion Gap 5 mmol/L (8-16); Aspartate Amino Transferase 40 U/L (17-59); Bilirubin,Total 0.9 mg/dL (0.2-1.3); Blood Urea Nitrogen 15 mg/dL (9-20); Calcium 8.5 mg/dL (8.4-10.2); Carbon Dioxide 28 mmol/L (22-30); Chloride 105 mmol/L (98-107); Estimated Glomerular Filt Rate > 60; Glucose 106 mg/dL (65-110); Potassium 4.3 mmol/L (3.4-5.0); Sodium 138 mmol/L (137-145)
== END 2023-07-08 11:54 | disposition home or self-care (01) ==
LOC: ANHLAB 11:58
PROVIDERS: PCP Family Medicine Adolescent Medicine; Visit Provider Internal Medicine Hematology & Oncology
DX: C50.222 Malignant neoplasm of upper-inner quadrant of left male breast (principal); Z17.0 Estrogen receptor positive status [ER+]
CPT/HCPCS: 36415; 80047; 80053; 85025